=== PATIENT | male | born 1965 | race Caucasian/White ===

== ENCOUNTER 2017-09-05 15:34 | Emergency (ER) | payer MEDICARE, MEDICAID, SELFPAY ==
[2017-09-05 15:35] VITALS: BP 155/108; PULSE 97; RESP 18; RESP 20; TEMP 37.1; O2SAT 96; O2SAT 97; BMI 26.9
--- NOTE | 2017-09-05 15:56 | CT_ITS ---
STUDY: CT ABDOMEN AND PELVIS WITH CONTRAST REASON FOR EXAM: Male, 52 years old. Lump right side of abdomen. History of Crohn's. Right hemicolectomy. Small bowel resection and appendectomy. RADIATION DOSAGE (If Supplied By Facility): CTDIvol = ( 17.46 ) mGy, DLP = ( 1000.39 ) mGycm TECHNIQUE: Transaxial images were obtained from the dome of the diaphragm to the symphysis pubis without oral contrast. 100ML ml of Isovue 300 contrast was administered. Sagittal and coronal images were reconstructed. Individualized dose optimization techniques were used for this CT. COMPARISON: January 31, 2016 FINDINGS: The visualized lung bases are unremarkable. The visualized portions of the heart are within normal limits. Normal liver. The gallbladder is contracted. Normal spleen. Normal pancreas. Normal bilateral adrenal glands. 2 simple right renal cortical cysts are noted measuring up to 3 cm. Normal left kidney. Normal visualized stomach. Normal small intestine. Multiple air-fluid levels are noted throughout the colon. Partial colectomy. There is oral contrast throughout the colon. There is non-visualization of the appendix. Normal abdominal aorta. Normal inferior vena cava. Normal retroperitoneum. Normal urinary bladder. Fat-containing inguinal hernias. Surgical clips are noted along the anterior abdominal wall. Remote healed ostomy right lower quadrant. Normal osseous structures. CT/Abdomen/Pelvis WITH Contrast IMPRESSION: Postoperative changes as above. No acute disease. Electronically Signed: Renan Herr MD at 19:21 EDT , Service support ,
--- NOTE | 2017-09-05 15:58 | ED.VISSUMM ---
- ER Visit Summary Date of Service: 09/05/17 Chief Complaint: [] abd pain history of Crohn's disease History of Present Illness: The patient is a 52 M [] 3 of multiple abdominal surgeries related to Crohn's disease he is currently on immunotherapy every 6 weeks that have control the Crohn's disease he reports for about a week he has had pain over a prior colostomy site that was taken down a few years ago. He did not injure himself anyway he has had no vomiting he has had normal bowel habits consist of diarrheal stool no blood he has been able to eat without difficulty his urinary habits have been normal, he has chronic abdominal pain he is on Percocet but he is out of the Percocet is schedule see his primary care physician tomorrow. He is followed by [facility] surgeons, his last abdominal surgery was a few years ago Physical Examination: []vs signs are within normal range she is in no distress she has a large cruciated type abdominal scar from prior surgeries he complains of pain over the right lower side of the scar over what he describes as the prior colostomy site this area is mildly tender there is no warmth redness fluctuance or fullness, his rest of his exam is unremarkable his lungs are clear heart tones are normal upper lower extremities are normal clinically he looks well he indicates he did not injure himself Test Results: [] Emergency Department Course and Treatment: [] All of the above labs CT pain management IV fluids Patient CBC chemistry labs CT abdomen IV oral contrast are all unremarkable showing nothing acute see those reports he is feeling better I have explained the test results to him at this time he feels comfortable discharge home follow-up with [facility] surgeons tomorrow he will be given 2 Percocet tablets to use as he is out of them as of explained we cannot further manage his pain through the emergency department, I explained to him again that the exact etiology of the pain is having is unclear there is no signs of an obstruction hernia incarceration exacerbation of Crohn's etc. and he understands need to follow-up with his physicians and he will do so and he feels comfortable with outpatient management Treatment Plan: [] Disposition: [] Home stable Impression: [] Acute recurrent abdominal pain history of Crohn's disease This note was generated with [employer] software. It may contain incorrect words, spelling, and punctuation that were not noted in review of the chart prior to signing ED Disposition - Plan for ED Patient: Chief Complaint: Abd Pain Referrals: Becca Le [Primary Care Provider] -
[2017-09-05 16:19] LABS: Bacteria 0 SEEN /hpf (None Seen); Squamous Epithelial Cells - UA 0 SEEN /hpf (0-5)
[2017-09-05 16:36] LABS: Color, Urine Yellow (Yellow); Glucose, Dipstick Normal (Normal); Ketone-Dipstick Negative (Negative); Leukocyte Esterase-Dipstick 25 /ul (Negative); Nitrite-Dipstick Negative (Negative); Occult Blood-Urine Negative /ul (Negative); Protein-Dipstick 15 mg/dl (Negative); Specific Gravity, Urine 1.025 (1.002-1.030); Urine Clarity Sl. Cloudy (Clear); Urine Urobilinogen 1 mg/dl (Normal)
[2017-09-05 16:52] LABS: Urine Bilirubin Dipstick 1 mg/dL (Negative)
[2017-09-05 17:02] LABS: Hyaline Cast 0-5 SEEN /lpf (0-5)
[2017-09-05 17:03] LABS: Mucous, Urine 3+ /hpf (<or=2+)
[2017-09-05 17:04] LABS: Calcium Oxalate Crystals Ur 2+ /hpf (<or=2+); White Blood Cells 0-5 SEEN /hpf (0-5)
[2017-09-05 17:06] LABS: Red Blood Cells-Urine 0-5 SEEN /hpf (0-5)
[2017-09-05] MEDS: HYDROmorphone 1 MG/ML Syringe 0.5 MG IV (17:15)
[2017-09-05] MEDS: Ondansetron 4 MG/2 ML Vial IV (17:15)
[2017-09-05] MEDS: 0.9% Normal Saline 1,000 ML 125 ML IV (17:42)
[2017-09-05 17:53] LABS: AST(SGOT) 18 U/L (15-37); Absolute Lymphocyte Count 1.26 X10^3/ul (0.83-4.51); Absolute Neutrophil Count 5.4 X10^3/uL (2.0-7.7); Alanine Aminotransfer ALT/SGPT 21 U/L (16-61); Alkaline Phosphatase 44 U/L (45-117); Anion Gap 6 (5-15); BUN 19 mg/dL (7-18); Basophil# 0.05 X10^3/uL; Basophil% 0.7 % (0-1); Bilirubin, Direct < 0.05 mg/dL (0.00-0.30); Chloride 108 mmol/L (98-107); Creatinine, Serum 1.27 mg/dL (0.70-1.30); EST Glomerular Filtration Rate 64 mL/min (>60); Eosinophil# 0.28 X10^3/uL; Eosinophils% 3.7 % (0-5); Est Glom Filt Rate - Afr Amer 77 mL/min (>60); Estimated Creatinine Clearance 76.38 ml/min; Globulin 3.1 g/dL (2.2-4.2); Glucose 85 mg/dL (74-106); Hematocrit 35.8 % (40-54); Hemoglobin 11.3 g/dl (13.0-16.5); Lipase 1289 U/L (73-393); Lymphocyte # 1.26 X10^3/ul (4.0); Lymphocyte % 16.8 % (19-41); Mean Corp Hgb Conc 31.6 g/gl (32-36); Mean Corpuscular Hgb 25.7 pg (27.0-32.0); Mean Corpuscular Volume 81.4 fL (80-94); Mean Platelet Vol. 9.1 fl (6.2-12.0); Monocyte% 6.6 % (0-10); Neutrophil # 5.42 X10^3/uL (2.7-7.7); Neutrophil % 72.1 % (47-70); Platelet Count 259 K/mm3 (150-450); Potassium 3.9 mmol/L (3.5-5.1); Protein, Total 6.1 g/dL (6.4-8.2); RBC Distribution Width CV 22.3 % (11.6-14.6); RBC Distribution Width SD 64.6 fl (35.1-43.9); Sodium Level 140 mmol/L (136-145); White Blood Count 7.5 K/mm3 (4.4-11.0)
[2017-09-05 18:06] VITALS: BP 138/94; PULSE 70; RESP 20; O2SAT 97
[2017-09-05 18:12] LABS: Differential Indicated SCAN CRITERIA MET; POSITIVE COUNT NO; POSITIVE DIFFERENTIAL NO; POSITIVE MORPHOLOGY YES
[2017-09-05 18:13] LABS: Anisocytosis 1+
--- NOTE | 2017-09-05 19:50 | ED.DEP ---
ED Disposition - Plan for ED Patient: Chief Complaint: Abd Pain Instructions: ED Abdominal Pain Unkn Cause Prescriptions: Oxycodone HCl/Acetaminophen [Percocet 5/325] 1 tab PO Q6H PRN PRN #2 tab PRN Reason: Pain Referrals: Becca Le [Primary Care Provider] -
== END 2017-09-05 20:07 | disposition home or self-care (01) ==
PROVIDERS: Emergency Provider Emergency Medicine; Family Provider Family Medicine; PCP Family Medicine
DX: R10.9 Unspecified abdominal pain (principal); G89.29 Other chronic pain; K50.90 Crohn's disease, unspecified, without complications; Z79.899 Other long term (current) drug therapy
CPT/HCPCS: 36591; 74177; 80048; 80076; 81001; 83690; 85025; 96361; 96374; 96375; 99282; J7030; J7040; Q9967; A4216; J2405

== ENCOUNTER 2017-09-09 01:09 | Emergency (ER) | payer MEDICARE, MEDICAID, SELFPAY ==
[2017-09-09 01:10] VITALS: BP 134/72; PULSE 94; RESP 18; TEMP 36.6; O2SAT 95; BMI 26.9
--- NOTE | 2017-09-09 01:54 | ED.DCSUM_ITS ---
- ER Visit Summary Date of Service: 09/09/17 Chief Complaint: [] Wound evaluation History of Present Illness: The patient is a 52 M [] patient concern for possible tick bite after being in the [place]. Patient has an area of concern in the left upper chest above his MediPort that is used for his Crohn's treatment. He denies seeing any tick however he has a questionable either ingrown hair versus tick bite and is here for evaluation. Denies any symptoms or rash. No other complaints at this time. Physical Examination: [] Afebrile, vital signs stable. Examination of the left chest wall reveals a Mediport with a small half centimeter area of open skin consistent with a resolved ingrown hair. No signs of tick or tick body parts. No signs of erythema consistent with Lyme disease. Skin is not warm to touch. Very benign examination. Test Results: [] None. Emergency Department Course and Treatment: [] Patient evaluated for condition not found. This does not appear to be a tick bite. Patient was encouraged to keep an eye on the area and follow-up with his primary care physician. The area in question did not require incision and drainage. Treatment Plan: [] Follow-up with PCP. Disposition: [] Discharge, stable. Impression: [] Ingrown hair on the chest wall, resolved This note was generated with [employer] dictation software. It may contain incorrect words, spelling, and punctuation that were not noted in review of the chart prior to signing ED Disposition - Plan for ED Patient: Chief Complaint: Bite Referrals: Becca Le [Primary Care Provider] -
--- NOTE | 2017-09-09 01:54 | ED.DEP ---
ED Disposition - Plan for ED Patient: Disposition: Home or Assisted Living Chief Complaint: Bite Instructions: Wound Care Referrals: Becca Le [Primary Care Provider] -
[2017-09-09 02:32] VITALS: RESP 18
== END 2017-09-09 02:32 | disposition home or self-care (01) ==
PROVIDERS: Emergency Provider Emergency Medicine; Family Provider Family Medicine; PCP Family Medicine
DX: L73.1 Pseudofolliculitis barbae (principal); K50.90 Crohn's disease, unspecified, without complications; Z95.828 Presence of other vascular implants and grafts; Z79.899 Other long term (current) drug therapy
CPT/HCPCS: 99282

== ENCOUNTER 2017-12-03 13:38 | Inpatient (IN) | payer MEDICARE, MEDICAID, SELFPAY ==
[2017-12-03 13:39] VITALS: BP 141/88; PULSE 92; RESP 16; TEMP 37.1; O2SAT 98; BMI 26.7
[2017-12-03 14:53] LABS: Absolute Lymphocyte Count 1.04 X10^3/ul (0.83-4.51); Absolute Neutrophil Count 5.2 X10^3/uL (2.0-7.7); Basophil# 0.07 X10^3/uL; Eosinophils% 2.8 % (0-5); Hematocrit 26.3 % (40-54); Hemoglobin 7.8 g/dl (13.0-16.5); Lymphocyte # 1.04 X10^3/ul (4.0); Lymphocyte % 14.7 % (19-41); Mean Corp Hgb Conc 29.7 g/gl (32-36); Mean Corpuscular Hgb 22.5 pg (27.0-32.0); Mean Corpuscular Volume 75.8 fL (80-94); Mean Platelet Vol. 8.3 fl (6.2-12.0); Monocyte# 0.54 X10^3/uL; Monocyte% 7.6 % (0-10); Neutrophil # 5.21 X10^3/uL (2.7-7.7); Neutrophil % 73.8 % (47-70); POSITIVE COUNT NO; POSITIVE DIFFERENTIAL NO; POSITIVE MORPHOLOGY NO; Platelet Count 272 K/mm3 (150-450); RBC Distribution Width CV 15.4 % (11.6-14.6); RBC Distribution Width SD 42.6 fl (35.1-43.9); Red Blood Count 3.47 M/mm3 (4.6-6.2); White Blood Count 7.1 K/mm3 (4.4-11.0)
[2017-12-03] MEDS: 0.9% Normal Saline 1,000 ML 1000 ML IV (14:56)
[2017-12-03 15:07] LABS: Anion Gap 7 (5-15); BUN 15 mg/dL (7-18); BUN/Creat Ratio 12.5 RATIO (10-20); Calcium,Total 8.3 mg/dL (8.5-10.1); Chloride 113 mmol/L (98-107); EST Glomerular Filtration Rate 68 mL/min (>60); Est Glom Filt Rate - Afr Amer 82 mL/min (>60); Estimated Creatinine Clearance 80.83 ml/min; Glucose 79 mg/dL (74-106); Lipase 118 U/L (73-393); Potassium 4.4 mmol/L (3.5-5.1); Sodium Level 145 mmol/L (136-145)
--- NOTE | 2017-12-03 15:17 | RAD_ITS ---
STUDY: X-RAY - ACUTE ABDOMINAL SERIES REASON FOR EXAM: Male, 52 years old. Abdominal pain with nausea and vomiting. Patient has a history of Crohn's disease. TECHNIQUE: Single view of the chest. Supine, and erect view(s) of the abdomen were obtained. COMPARISON: None. FINDINGS: A left-sided leigh catheter is seen with the tip in the proximal portion of the superior vena cava. The lungs are clear and expanded. Normal size heart. Normal mediastinum and paolo. Normal visualized pulmonary arteries. Normal visualized aortic arch and descending thoracic aorta. There is a non-specific bowel gas pattern. There are multiple calcified phleboliths. Surgical sutures are seen in the right hemipelvis and right midabdomen. There are degenerative changes of the visualized lumbar spine. Mild dextroscoliosis. RAD/Acute Abdomen Inc Chest IMPRESSION: Nonspecific bowel gas pattern. Electronically Signed: Gordo Smith MD at 15:33 EDT Tel [phone], Service support ,
[2017-12-03] MEDS: HYDROmorphone 0.5 MG/0.5 ML SYRINGE IV ×2 (15:31→18:27)
[2017-12-03 15:34] LABS: Bacteria 0 SEEN /hpf (None Seen); Red Blood Cells-Urine 0 SEEN /hpf (0-5); Squamous Epithelial Cells - UA 0 SEEN /hpf (0-5)
[2017-12-03 16:02] LABS: Color, Urine Yellow (Yellow); Glucose, Dipstick Normal (Normal); Ketone-Dipstick Negative (Negative); Leukocyte Esterase-Dipstick Negative /ul (Negative); Nitrite-Dipstick Negative (Negative); Occult Blood-Urine Negative /ul (Negative); Protein-Dipstick 15 mg/dl (Negative); Urine Bilirubin Dipstick Negative (Negative); Urine Clarity Clear (Clear); Urine Urobilinogen Normal (Normal)
--- NOTE | 2017-12-03 16:16 | ED.VISSUMM ---
- ER Visit Summary Date of Service: 12/03/17 Chief Complaint: Abdominal pain History of Present Illness: The patient is a 52 M with a history of Crohn's disease who presents with abdominal pain that has been gradually getting worse over the past week. Patient states the pain is over the left upper quadrant and left lower quadrants. Patient states the pain is worse with certain movements. Patient describes his pain as aching. Patient admits to some nausea but denies any vomiting. Patient states he has a history of diarrhea and has been having frequent watery and loose diarrhea. Patient states he did noted some black stools yesterday but denies any melena today. Physical Examination: Vital signs are stable. Patient is afebrile. Patient is in no acute distress. Oral mucosa is pink and moist. Pupils are equal, round, and reactive to light bilateral. Extraocular muscles are intact. Conjunctiva is clear. Neck is supple. There is no JVD noted. Heart was regular rate and rhythm. Lungs are clear and equal bilaterally. Abdomen is soft. Bowel sounds are normal. There is some mild left upper quadrant and left lower quadrant tenderness. There is no rebound or guarding noted. There is no left CVA tenderness noted. Rectal exam showed good sphincter tone. There is brown stool. There were no masses. Prostate is not enlarged. Test Results: CBC showed anemia with a hemoglobin of 7.8. Patient metabolic profile was within normal limits. Acute abdominal x-rays were obtained. There is nonspecific bowel gas pattern. This was interpreted by the radiologist and reviewed by me. Emergency Department Course and Treatment: Patient was given a dose of Dilaudid here. Patient felt better on reevaluation. Case was discussed with Dr. Jackson. He wanted me to discuss the case with surgery. Patient had multiple surgeries at the [facility]. Case was discussed with Dr. Cruz, general surgeon for [facility] here in [place]. She will be happy to see the patient in consultation. Patient will be admitted to the service of Dr. Jackson. Disposition: Admit to hospital Impression: Anemia, gastrointestinal bleeding This note was generated with [employer] dictation software. It may contain incorrect words, spelling, and punctuation that were not noted in review of the chart prior to signing ED Disposition - Plan for ED Patient: Disposition: Acute Care Hospital [facility] Chief Complaint: Abd Pain Diagnosis: Gastrointestinal bleeding, Anemia Referrals: Becca Le DO [Primary Care Provider] -
--- NOTE | 2017-12-03 16:19 | ED.DCSUM_ITS ---
- ER Visit Summary Date of Service: 12/03/17 Chief Complaint: Abdominal pain History of Present Illness: The patient is a 52 M with a history of Crohn's disease who presents with abdominal pain that has been gradually getting worse over the past week. Patient states the pain is over the left upper quadrant and left lower quadrants. Patient states the pain is worse with certain movements. Patient describes his pain as aching. Patient admits to some nausea but denies any vomiting. Patient states he has a history of diarrhea and has been having frequent watery and loose diarrhea. Patient states he did noted some black stools yesterday but denies any melena today. Physical Examination: Vital signs are stable. Patient is afebrile. Patient is in no acute distress. Oral mucosa is pink and moist. Pupils are equal, round, and reactive to light bilateral. Extraocular muscles are intact. Conjunctiva is clear. Neck is supple. There is no JVD noted. Heart was regular rate and rhythm. Lungs are clear and equal bilaterally. Abdomen is soft. Bowel sounds are normal. There is some mild left upper quadrant and left lower quadrant tenderness. There is no rebound or guarding noted. There is no left CVA tenderness noted. Rectal exam showed good sphincter tone. There is brown stool. There were no masses. Prostate is not enlarged. Test Results: CBC showed anemia with a hemoglobin of 7.8. Patient metabolic profile was within normal limits. Acute abdominal x-rays were obtained. There is nonspecific bowel gas pattern. This was interpreted by the radiologist and reviewed by me. Emergency Department Course and Treatment: Patient was given a dose of Dilaudid here. Patient felt better on reevaluation. Case was discussed with Dr. Jackson. He wanted me to discuss the case with surgery. Patient had multiple surgeries at the [facility]. Case was discussed with Dr. Cruz , general surgeon for [facility] here in [place]. She will be happy to see the patient in consultation. Patient will be admitted to the service of Dr. Jackson. Disposition: Admit to hospital Impression: Anemia, gastrointestinal bleeding This note was generated with [employer] dictation software. It may contain incorrect words, spelling, and punctuation that were not noted in review of the chart prior to signing ED Disposition - Plan for ED Patient: Disposition: Acute Care Hospital [facility] Chief Complaint: Abd Pain Diagnosis: Gastrointestinal bleeding, Anemia Referrals: Becca Le DO [Primary Care Provider] -
[2017-12-03 16:37] LABS: Hyaline Cast 0-5 SEEN /lpf (0-5); Mucous, Urine RARE /hpf (<or=2+); White Blood Cells 0-5 SEEN /hpf (0-5)
[2017-12-03 17:09] VITALS: BP 134/94; PULSE 67; PULSE 69; RESP 16; O2SAT 98; O2SAT 99
--- NOTE | 2017-12-03 17:29 | NURSING ---
CALLING [facility] MAIN FOR TRANSFER.
--- NOTE | 2017-12-03 17:44 | PCM.HP.STD ---
Problem List (1) Acute blood loss anemia Status: Acute (2) Exacerbation of Crohn's disease Status: Acute (3) Gastrointestinal bleeding Status: Acute History of Present Illness Date of Admission: 12/03/17 Chief Complaint: LLQ abdominal pain and melena The patient is a 52 year old M history of Crohn's disease presents with a three-week history of left lower quadrant abdominal pain and melena. Patient has had numerous surgeries is approximately 300 cm left of GI tract. Patient states that when he gets these episodes that he is generally sent to [facility]. I was asked to see patient knew that for GI bleed. Patient has been having melena but none today but just states that his stool is watery. Has left lower quadrant pain that is steadily gotten worse. This is all consistent with his history of Crohn's exacerbation though his anemia is lower than it has been in the past. Patient was anticipating being admitted given his history and did bring supplies to occupy his time while he is in the hospital. Dr. salcedo, of general surgery was consulted. I did discuss with her and said that she would be happy to see him but if patient did require procedures and he would be best suited going to the [facility]. Did discuss with emergency room doctor who will be attempting to facilitate an accepting physician at [facility]. Though it is expected that they will not have any beds available today so patient will be admitted so until he can have a bed that is available. [] Past Medical History Past Medical History (Chronic Problems): Chronic Problems History of multiple sclerosis (Chronic) ZORAIDA Virus positive (Chronic) History of gastroesophageal reflux (GERD) (Chronic) History of Crohn's disease (Chronic) JAYE on CPAP (Chronic) Gall bladder disease (Chronic) Overweight (BMI 25.0-29.9) (Chronic) History of depression (Chronic) Medical History: Medical History (Last Updated 12/03/17 @ 17:48 by Terence Jackson DO) Anemia D64.9 Crohns disease K50.90 Depression F32.9 GERD (gastroesophageal reflux disease) K21.9 Multiple sclerosis G35 JAYE (obstructive sleep apnea) G47.33 Allergies morphine Allergy (Verified 12/03/17 13:41) Itching Home Medications: Ambulatory Orders Medication Instructions Recorded Pantoprazole Sodium [Protonix] 20 mg PO DAILY 01/31/16 Cyanocobalamin (Vitamin B-12) 1,000 mcg IJ QWEEK 09/05/17 [B-12 Compliance] Dextroamphetamine/Amphetamine 10 mg PO BID 09/05/17 [Adderall 10 mg Tablet] Ergocalciferol [Vitamin D] 50,000 unit PO Q7D 09/05/17 Ondansetron [Zofran Odt] 4 mg PO PRN PRN 09/05/17 Pregabalin [Lyrica] 150 mg PO BID 09/05/17 Vedolizumab [Entyvio] 300 mg IV X1 09/05/17 Multivitamin [Daily Multiple 1 each PO DAILY 12/03/17 Vitamin] Surgical History: - - 2 hernia surgery, appendicectomy, four bowel surgeries, right knee surgery, Humira injection site surgery. Psychiatric History: Depression Lives: Spouse/ Significant Other Smoking Status: Former smoker Tobacco Use: Non-smoker Alcohol: Rare Drugs: Marijuana - *Family History Maternal History Items: - - Crohn's disease Paternal History Items: Heart Disease, - - Colon cancer Sibling History Items: - - Crohn's disease Review of Systems Constitutional: Denies: Anorexia, Chills, Fever Eyes: Denies: Blurred vision, Double vision HEENT: Denies: Head Aches, Sinus Congestion, Sinus Drainage Cardiovascular: Denies: Chest Pain, Palpitations Respiratory: Denies: Cough, Shortness of breath at rest, Sputum production Gastrointestinal: Reports: Abdominal Pain - LLQ, Diarrhea, Melena Genitourinary: Denies: Dysuria Musculoskeletal: Denies: Joint Pain, Joint Tenderness Skin: Denies: Rash, Wounds Neurological: Denies: Numbness, Tingling, Focal weakness Psychiatric: Reports: Depression. Denies: Anxiety Hematologic/ Lymphatic: Reports: Easy Bleeding. Denies: Hx of blood clot Comment: All review of systems are negative except as mentioned in the history of present illness and the other review of systems. VTE Information - Inpt Only VTE Present on Admission: No VTE Mechan Device Prophylaxis: SCD's Reason prophylaxis not ordered:: Medical Contraindication Patient Problems: Active and Suspected Problems Gastrointestinal bleeding (Acute) Anemia (Acute) Acute blood loss anemia (Acute) Exacerbation of Crohn's disease (Acute) - Physical Exam General: Alert, Cooperative, No apparent distress HEENT: Atraumatic, Normocephalic Oral: Moist Mucosa, No Gingival or Mucosal Lesions/ Ulcerations Neck: No Nodes, Thyroid Normal Size and Texture Lungs: Clear to auscultation, Normal air movement, No rhonchi, No wheeze Cardiovascular: Regular rate, Regular Rhythm, Normal S1, Normal S2, No murmurs Abdomen: Bowel Sounds Present, Soft, Non-Distended, Rebound Tenderness, Tender - Left lower quadrant Extremities: No edema, No Calf Tenderness Skin: No rashes, No breakdown Musculoskeletal: No Tenderness to Palpation of Joints or Extremities, No Muscle Wasting Neurological: Sensory exam intact to light touch and pain, Coordination normal Psych/Mental Status: Normal Affect, Appropriate Vital Signs Temp Pulse Resp BP Pulse Ox 37.1 C 67 16 134/94 H 98 12/03/17 13:39 12/03/17 17:09 12/03/17 17:09 12/03/17 17:09 12/03/17 17:09 Oxygen Delivery Method Room Air Weight: 89.5 kg Body Mass Index (BMI) 26.7 Laboratory Tests Past 24 Hrs 12/03/17 12/03/17 12/03/17 14:44 14:44 15:30 WBC 7.1 RBC 3.47 L Hgb 7.8 L Hct 26.3 L MCV 75.8 L MCH 22.5 L MCHC 29.7 L RDW 15.4 H RDW Differential 42.6 Plt Count 272 MPV 8.3 Immature Gran % (Auto) 0.100 Neut % (Auto) 73.8 H Lymph % (Auto) 14.7 L Waldo % (Auto) 7.6 Eos % (Auto) 2.8 Baso % (Auto) 1.0 Absolute Neuts (auto) 5.2 Absolute Lymphs (auto) 1.04 Total Counted Not Reportable Sodium 145 Potassium 4.4 Chloride 113 H Carbon Dioxide 25.0 Anion Gap 7 BUN 15 Creatinine 1.20 Estim Creat Clear Calc 80.83 Est GFR (MDRD) Af Amer 82 Est GFR (MDRD) Non-Af 68 BUN/Creatinine Ratio 12.5 Glucose 79 Calcium 8.3 L Lipase 118 Urine Color Yellow Urine Clarity Clear Urine pH 5.0 Ur Specific [place] 1.030 Urine Protein 15 H Urine Glucose (UA) Normal Urine Ketones Negative Urine Occult Blood Negative Urine Nitrite Negative Urine Bilirubin Negative Urine Urobilinogen Normal Ur Leukocyte Esterase Negative Urine RBC 0 SEEN Urine WBC 0-5 SEEN Ur Squamous Epith Cells 0 SEEN Urine Bacteria 0 SEEN Hyaline Casts 0-5 SEEN Urine Mucus RARE Clinical Impression(s) from Imaging Studies Acute Abdomen Series 12/03/17 15:17 IMPRESSION: Nonspecific bowel gas pattern. Electronically Signed: Gordo Smith MD at 15:33 EDT Tel [phone], Service support , Assessment/Plan All Active Problems Gastrointestinal bleeding (Acute) Anemia (Acute) Acute blood loss anemia (Acute) Exacerbation of Crohn's disease (Acute) Hypomagnesemia (Acute) Dehydration (Acute) Exacerbation of Crohn's disease (Ruled-out) 1. Acute blood loss anemia Due to GI bleed Will type and cross patient for 1 unit but hold for now Follow-up hemoglobin in the morning 2. GI bleed I suspect due to a Crohn's exacerbation though I cannot confirm that just yet Will put the patient on IV PPI empirically Given the patient's altered anatomy due to his multiple surgeries will require further potential procedures at the main campus of [facility] General surgery be on consult here though did mention no imminent procedures will be performed here. 3. Suspected Crohn's exacerbation Ordered a CAT scan of his abdomen and pelvis to get better identification was going on his left lower quadrant. Presumably this is due to his Crohn's but cannot rule out any other acute process at this time. If no clear evidence of any abscess in patient on high-dose steroids Until we get the results of the CAT scan, I am going to hold off on his Entyvio 4. DVT prophylaxis with SCDs. Chemical prophylaxis contraindicated in light of the acute blood loss anemia and hemorrhage. Code Visit Inpatient E&M: 32767 Init Hosp L3
--- NOTE | 2017-12-03 17:46 | NURSING ---
[id number] FAXED FACESHEET TO [facility]
--- NOTE | 2017-12-03 17:46 | NURSING ---
DR PERRY FOR DR REY
--- NOTE | 2017-12-03 17:54 | HP.PCM_ITS ---
Problem List (1) Acute blood loss anemia Status: Acute (2) Exacerbation of Crohn's disease Status: Acute (3) Gastrointestinal bleeding Status: Acute History of Present Illness Date of Admission: 12/03/17 Chief Complaint: LLQ abdominal pain and melena The patient is a 52 year old M history of Crohn's disease presents with a three- week history of left lower quadrant abdominal pain and melena. Patient has had numerous surgeries is approximately 300 cm left of GI tract. Patient states that when he gets these episodes that he is generally sent to [facility]. I was asked to see patient knew that for GI bleed. Patient has been having melena but none today but just states that his stool is watery. Has left lower quadrant pain that is steadily gotten worse. This is all consistent with his history of Crohn's exacerbation though his anemia is lower than it has been in the past. Patient was anticipating being admitted given his history and did bring supplies to occupy his time while he is in the hospital. Dr. salcedo, of general surgery was consulted. I did discuss with her and said that she would be happy to see him but if patient did require procedures and he would be best suited going to the [facility]. Did discuss with emergency room doctor who will be attempting to facilitate an accepting physician at [facility]. Though it is expected that they will not have any beds available today so patient will be admitted so until he can have a bed that is available. [] Past Medical History Past Medical History (Chronic Problems): Chronic Problems History of multiple sclerosis (Chronic) ZORAIDA Virus positive (Chronic) History of gastroesophageal reflux (GERD) (Chronic) History of Crohn's disease (Chronic) JAYE on CPAP (Chronic) Gall bladder disease (Chronic) Overweight (BMI 25.0-29.9) (Chronic) History of depression (Chronic) Medical History: Medical History (Last Updated 12/03/17 @ 17:48 by Terence Jackson DO) Anemia D64.9 Crohns disease K50.90 Depression F32.9 GERD (gastroesophageal reflux disease) K21.9 Multiple sclerosis G35 JAYE (obstructive sleep apnea) G47.33 Allergies morphine Allergy (Verified 12/03/17 13:41) Itching Home Medications: Ambulatory Orders Medication Instructions Recorded Pantoprazole Sodium [Protonix] 20 mg PO DAILY 01/31/16 Cyanocobalamin (Vitamin B-12) 1,000 mcg IJ QWEEK 09/05/17 [B-12 Compliance] Dextroamphetamine/Amphetamine 10 mg PO BID 09/05/17 [Adderall 10 mg Tablet] Ergocalciferol [Vitamin D] 50,000 unit PO Q7D 09/05/17 Ondansetron [Zofran Odt] 4 mg PO PRN PRN 09/05/17 Pregabalin [Lyrica] 150 mg PO BID 09/05/17 Vedolizumab [Entyvio] 300 mg IV X1 09/05/17 Multivitamin [Daily Multiple 1 each PO DAILY 12/03/17 Vitamin] Surgical History: - - 2 hernia surgery, appendicectomy, four bowel surgeries, right knee surgery, Humira injection site surgery. Psychiatric History: Depression Lives: Spouse/ Significant Other Smoking Status: Former smoker Tobacco Use: Non-smoker Alcohol: Rare Drugs: Marijuana - *Family History Maternal History Items: - - Crohn's disease Paternal History Items: Heart Disease, - - Colon cancer Sibling History Items: - - Crohn's disease Review of Systems Constitutional: Denies: Anorexia, Chills, Fever Eyes: Denies: Blurred vision, Double vision HEENT: Denies: Head Aches, Sinus Congestion, Sinus Drainage Cardiovascular: Denies: Chest Pain, Palpitations Respiratory: Denies: Cough, Shortness of breath at rest, Sputum production Gastrointestinal: Reports: Abdominal Pain - LLQ, Diarrhea, Melena Genitourinary: Denies: Dysuria Musculoskeletal: Denies: Joint Pain, Joint Tenderness Skin: Denies: Rash, Wounds Neurological: Denies: Numbness, Tingling, Focal weakness Psychiatric: Reports: Depression. Denies: Anxiety Hematologic/ Lymphatic: Reports: Easy Bleeding. Denies: Hx of blood clot Comment: All review of systems are negative except as mentioned in the history of present illness and the other review of systems. VTE Information - Inpt Only VTE Present on Admission: No VTE Mechan Device Prophylaxis: SCD's Reason prophylaxis not ordered:: Medical Contraindication Patient Problems: Active and Suspected Problems Gastrointestinal bleeding (Acute) Anemia (Acute) Acute blood loss anemia (Acute) Exacerbation of Crohn's disease (Acute) - Physical Exam General: Alert, Cooperative, No apparent distress HEENT: Atraumatic, Normocephalic Oral: Moist Mucosa, No Gingival or Mucosal Lesions/ Ulcerations Neck: No Nodes, Thyroid Normal Size and Texture Lungs: Clear to auscultation, Normal air movement, No rhonchi, No wheeze Cardiovascular: Regular rate, Regular Rhythm, Normal S1, Normal S2, No murmurs Abdomen: Bowel Sounds Present, Soft, Non-Distended, Rebound Tenderness, Tender - Left lower quadrant Extremities: No edema, No Calf Tenderness Skin: No rashes, No breakdown Musculoskeletal: No Tenderness to Palpation of Joints or Extremities, No Muscle Wasting Neurological: Sensory exam intact to light touch and pain, Coordination normal Psych/Mental Status: Normal Affect, Appropriate Vital Signs Temp Pulse Resp BP Pulse Ox 37.1 C 67 16 134/94 H 98 12/03/17 13:39 12/03/17 17:09 12/03/17 17:09 12/03/17 17:09 12/03/17 17:09 Oxygen Delivery Method Room Air Weight: 89.5 kg Body Mass Index (BMI) 26.7 Laboratory Tests Past 24 Hrs 12/03/17 12/03/17 12/03/17 14:44 14:44 15:30 WBC 7.1 RBC 3.47 L Hgb 7.8 L Hct 26.3 L MCV 75.8 L MCH 22.5 L MCHC 29.7 L RDW 15.4 H RDW Differential 42.6 Plt Count 272 MPV 8.3 Immature Gran % (Auto) 0.100 Neut % (Auto) 73.8 H Lymph % (Auto) 14.7 L [place] % (Auto) 7.6 Eos % (Auto) 2.8 Baso % (Auto) 1.0 Absolute Neuts (auto) 5.2 Absolute Lymphs (auto) 1.04 Total Counted Not Reportable Sodium 145 Potassium 4.4 Chloride 113 H Carbon Dioxide 25.0 Anion Gap 7 BUN 15 Creatinine 1.20 Estim Creat Clear Calc 80.83 Est GFR (MDRD) Af Amer 82 Est GFR (MDRD) Non-Af 68 BUN/Creatinine Ratio 12.5 Glucose 79 Calcium 8.3 L Lipase 118 Urine Color Yellow Urine Clarity Clear Urine pH 5.0 Ur Specific [place] 1.030 Urine Protein 15 H Urine Glucose (UA) Normal Urine Ketones Negative Urine Occult Blood Negative Urine Nitrite Negative Urine Bilirubin Negative Urine Urobilinogen Normal Ur Leukocyte Esterase Negative Urine RBC 0 SEEN Urine WBC 0-5 SEEN Ur Squamous Epith Cells 0 SEEN Urine Bacteria 0 SEEN Hyaline Casts 0-5 SEEN Urine Mucus RARE Clinical Impression(s) from Imaging Studies Acute Abdomen Series 12/03/17 15:17 IMPRESSION: Nonspecific bowel gas pattern. Electronically Signed: Gordo Smith MD at 15:33 EDT Tel [phone], Service support , Assessment/Plan All Active Problems Gastrointestinal bleeding (Acute) Anemia (Acute) Acute blood loss anemia (Acute) Exacerbation of Crohn's disease (Acute) Hypomagnesemia (Acute) Dehydration (Acute) Exacerbation of Crohn's disease (Ruled-out) 1. Acute blood loss anemia * Due to GI bleed * Will type and cross patient for 1 unit but hold for now * Follow-up hemoglobin in the morning 2. GI bleed * I suspect due to a Crohn's exacerbation though I cannot confirm that just yet * Will put the patient on IV PPI empirically * Given the patient's altered anatomy due to his multiple surgeries will require further potential procedures at the main campus of [facility] * General surgery be on consult here though did mention no imminent procedures will be performed here. 3. Suspected Crohn's exacerbation * Ordered a CAT scan of his abdomen and pelvis to get better identification was going on his left lower quadrant. Presumably this is due to his Crohn's but cannot rule out any other acute process at this time. * If no clear evidence of any abscess in patient on high-dose steroids * Until we get the results of the CAT scan, I am going to hold off on his Entyvio 4. DVT prophylaxis with SCDs. Chemical prophylaxis contraindicated in light of the acute blood loss anemia and hemorrhage. Code Visit Inpatient E&M: 16260 Init Hosp L3
--- NOTE | 2017-12-03 17:58 | NURSING ---
IF PATIENT CAN'T GET ADMITTED IN A TIMELY FASHION TO [facility], WE WILL ADMIT HIM.
--- NOTE | 2017-12-03 17:59 | NURSING ---
PCU GI BLEED AYDIN
--- NOTE | 2017-12-03 18:20 | NURSING ---
CALLED [facility] TRANSFER LINE FOR DR REY
--- NOTE | 2017-12-03 18:25 | NURSING ---
[facility] DR FOR DR VILLASENOR
--- NOTE | 2017-12-03 18:33 | ED.RN ---
DR VILLASENOR SPOKE TO DR YBARRA FROM [facility], STILL WORKING ON TRANSFER
[2017-12-03 19:38] VITALS: BP 141/74; PULSE 71; RESP 16; O2SAT 97
--- NOTE | 2017-12-03 20:42 | ED.RN ---
PER STEVE AT [facility], WAIT TIMES ARE PROJECTED TO BE LONGER THAN EIGHT HOURS FOR A ROOM ASSIGNMENT. PER DR VILLASENOR WE SHOULD ADMIT TO THE FLOOR DURING THIS TIME. HOSPITALIST WAS PAGED
--- NOTE | 2017-12-03 21:23 | CT_ITS ---
STUDY: CT ABDOMEN AND PELVIS WITHOUT CONTRAST REASON FOR EXAM: Male, 52 years old. Left lower quadrant abdominal pain RADIATION DOSAGE (If Supplied By Facility): CTDIvol = ( 18.88 ) mGy, DLP = ( 1218.21 ) mGycm TECHNIQUE: Transaxial images were obtained from the dome of the diaphragm to the symphysis pubis without oral contrast, and without intravenous contrast. Sagittal and coronal images were reconstructed. Individualized dose optimization techniques were used for this CT. COMPARISON: CT scan abdomen and pelvis September 05, 2017, abdominal series December 03, 2017. FINDINGS: The visualized lung bases are unremarkable. The visualized portions of the heart are within normal limits. Normal liver. There is a thick-walled appearance of the gallbladder image #39 where it may measure up to 4.4 mm. Is borderline splenomegaly similar to the prior study. Normal pancreas. Normal bilateral adrenal glands. Multiple right-sided renal cysts. There is one measuring 2.5 x 2.3 cm. There is one measuring 1.6 x 1.6 cm. Normal left kidney. Normal visualized stomach. Normal small intestine. There are air-fluid levels within the visualized colon with fecal fluid material. This is similar to the prior study perhaps with lesser distention. There is postoperative change in the right side of the abdomen. Most of the fluid filled bowel are seen on the left side of the abdomen. There is non-visualization of the appendix. Normal abdominal aorta. Normal inferior vena cava. Normal retroperitoneum. Bladder is partially decompressed the wall is thickened. There are calcifications in the prostate. The prostate is of normal size for There is postoperative change in the mid abdominal wall. There is postoperative change in the right anterior side intraperitoneal fat in the right upper quadrant. There are bilateral fatty inguinal hernias. There is degenerative change in the thoracolumbar spine with significant at the level of L5-S1 there is a broad disc bulge and moderate neural foramina narrowing facet arthropathy. There is a diastases of the right to midline abdominal wall which may represent a prior surgical tract or colostomy tract measuring 1.[address]/Abdomen/Pelvis W IV Cont ONLY IMPRESSION: There is a persistent fluid distended appearance of the colon is suggestive of a gastroenteritis type pattern with fluid-filled distended loops of large greater than small bowel. There is postoperative change in the right upper quadrant. Could consider ileus. Postoperative change mid abdomen. Stable bilateral renal cysts. Electronically Signed: Alejandra Srinivasan MD at 22:36 EDT Tel , Service support ,
[2017-12-03 21:25] VITALS: BP 134/94; BP 152/95; PULSE 70; RESP 18; TEMP 36.5; O2SAT 96; BMI 26.3
[2017-12-03 21:28] VITALS: PULSE 76
[2017-12-03] MEDS: 0.9% Normal Saline 1,000 ML 100 ML IV (22:49)
[2017-12-03] MEDS: oxyCODONE 5 MG Tablet PO (22:49)
[2017-12-03] MEDS: 0.9% NaCl VAD Flush 10 ML IV (22:52)
[2017-12-03] MEDS: Pregabalin 75 MG Capsule 150 MG PO (22:52)
[2017-12-03 23:00] VITALS: PULSE 76
[2017-12-04] VITALS (14 sets, daily range): BP systolic 110–136; BP diastolic 60–83; PULSE 58–94; RESP 15–18; TEMP 36.3–36.9; O2SAT 94–99
[2017-12-04] MEDS: oxyCODONE 5 MG Tablet PO ×3 (02:45→12:38)
[2017-12-04] MEDS: 0.9% Normal Saline 1,000 ML 100 ML IV (05:14)
[2017-12-04 05:44] LABS: Anion Gap 7 (5-15); BUN 13 mg/dL (7-18); BUN/Creat Ratio 11.1 RATIO (10-20); Calcium,Total 8.1 mg/dL (8.5-10.1); Chloride 112 mmol/L (98-107); Creatinine, Serum 1.17 mg/dL (0.70-1.30); EST Glomerular Filtration Rate 70 mL/min (>60); Est Glom Filt Rate - Afr Amer 85 mL/min (>60); Estimated Creatinine Clearance 82.91 ml/min; Glucose 82 mg/dL (74-106); Potassium 4.3 mmol/L (3.5-5.1); Sodium Level 143 mmol/L (136-145)
[2017-12-04 05:58] LABS: International Normalized Ratio 1.1; Prothrombin Time (Protime)PT. 14.2 SECONDS (11.7-14.9)
[2017-12-04] MEDS: 0.9% NaCl VAD Flush 10 ML IV ×5 (07:22→21:22)
[2017-12-04 07:38] LABS: Absolute Lymphocyte Count 1.45 X10^3/ul (0.83-4.51); Absolute Neutrophil Count 5.8 X10^3/uL (2.0-7.7); Basophil# 0.06 X10^3/uL; Basophil% 0.7 % (0-1); Eosinophil# 0.27 X10^3/uL; Eosinophils% 3.2 % (0-5); Hematocrit 25.5 % (40-54); Hemoglobin 7.4 g/dl (13.0-16.5); Lymphocyte # 1.45 X10^3/ul (4.0); Lymphocyte % 17.4 % (19-41); Mean Corpuscular Hgb 22.3 pg (27.0-32.0); Mean Corpuscular Volume 76.8 fL (80-94); Mean Platelet Vol. 9.2 fl (6.2-12.0); Monocyte# 0.69 X10^3/uL; Monocyte% 8.3 % (0-10); Neutrophil # 5.82 X10^3/uL (2.7-7.7); Neutrophil % 70.2 % (47-70); Platelet Count 323 K/mm3 (150-450); RBC Distribution Width CV 15.6 % (11.6-14.6); RBC Distribution Width SD 43.8 fl (35.1-43.9); Red Blood Count 3.32 M/mm3 (4.6-6.2); White Blood Count 8.3 K/mm3 (4.4-11.0)
[2017-12-04 07:43] LABS: POSITIVE COUNT NO; POSITIVE DIFFERENTIAL NO; POSITIVE MORPHOLOGY NO
[2017-12-04] MEDS: Pregabalin 75 MG Capsule 150 MG PO ×2 (08:29→21:11)
[2017-12-04] MEDS: Multivitamins,Therapeutic Tablet 1 TABLET PO (08:29)
[2017-12-04 09:18] LABS: Iron 10 ug/dL (65-175); Iron Binding Capacity,Total 399 ug/dL (250-450); PERCENT IRON SATURATION 2.5 % (15.0-55.0)
[2017-12-04] MEDS: Ciprofloxacin 400 MG/200 ML BAG 200 MG IV ×2 (09:34→21:06)
[2017-12-04 10:10] LABS: Bedside Glucose 80 mg/dL (70-110)
[2017-12-04] MEDS: 0.9% Normal Saline 1,000 ML 999 ML IV (10:22)
--- NOTE | 2017-12-04 10:28 | NURSING ---
PT working with pt, p tbecame dizzy, pale, and diaphoretic and numbness. staff assist called, vs taken at 1005 bp 139/82 HR 69 95% RA afebrile, BS 80 cool cloth given for pt, 1L bolus given, nursing teacher sent to retrieve blood products.
--- NOTE | 2017-12-04 11:11 | PCM.PROGNOTE ---
<Bautista Celeste - Last Filed: 12/04/17 11:11> Patient Problems: Active and Suspected Problems (Last Updated 12/03/17 @ 17:48 by Terence Jackson DO) Gastrointestinal bleeding (Acute) Anemia (Acute) Acute blood loss anemia (Acute) Exacerbation of Crohn's disease (Acute) Subjective: Patient very dizzy/lh with activity. continues to have LLQ abdominal pain but it is controlled by current pain regimen well. No further reported blood. No nausea vomiting. Pt complaining of hunger. No fever / chills. - Physical Exam General: Alert, Oriented x3, Cooperative HEENT: Atraumatic, PERRLA, EOMI, Normocephalic Neck: Supple, No JVD, Negative Carotid Bruits Lungs: Clear to auscultation, Normal air movement Cardiovascular: Regular rate, No murmurs Abdomen: Bowel Sounds Present, Soft, Non Tender, Tender - llq, - - multiple old surgical scars. Extremities: No edema, Capillary Refill Less than 3 Seconds Skin: No rashes, No breakdown Musculoskeletal: No Tenderness to Palpation of Joints or Extremities Neurological: Cranial nerves II-XII grossly intact Psych/Mental Status: Normal Affect, Appropriate, Alert and oriented to time, place, person, mood and affect Vital Signs Temp Pulse Resp BP Pulse Ox 98.4 F 64 16 129/78 H 97 12/04/17 11:10 12/04/17 11:10 12/04/17 11:10 12/04/17 11:10 12/04/17 11:10 Oxygen Delivery Method Room Air Weight: 194 lb 3.636 oz Body Mass Index (BMI) 26.3 Intake and Output for Last 24 Hours 12/02/17 12/03/17 12/04/17 23:59 23:59 23:59 Intake Total 721 / 721 Output Total Balance - 721 / 721 Laboratory Tests Past 24 Hrs 12/03/17 12/04/17 12/04/17 23:10 05:00 05:00 WBC RBC Hgb Hct MCV MCH MCHC RDW RDW Differential Plt Count MPV Immature Gran % (Auto) Neut % (Auto) Lymph % (Auto) [place] % (Auto) Eos % (Auto) Baso % (Auto) Absolute Neuts (auto) Absolute Lymphs (auto) Total Counted PT 14.2 INR 1.1 Sodium 143 Potassium 4.3 Chloride 112 H Carbon Dioxide 24.0 Anion Gap 7 BUN 13 Creatinine 1.17 Estim Creat Clear Calc 82.91 Est GFR (MDRD) Af Amer 85 Est GFR (MDRD) Non-Af 70 BUN/Creatinine Ratio 11.1 Glucose 82 Calcium 8.1 L Iron TIBC Iron Saturation Blood Type A POSITIVE Antibody Screen NEGATIVE Crossmatch See Detail 12/04/17 12/04/17 05:00 05:00 WBC 8.3 RBC 3.32 L Hgb 7.4 L Hct 25.5 L MCV 76.8 L MCH 22.3 L MCHC 29.0 L RDW 15.6 H RDW Differential 43.8 Plt Count 323 MPV 9.2 Immature Gran % (Auto) 0.200 Neut % (Auto) 70.2 H Lymph % (Auto) 17.4 L [place] % (Auto) 8.3 Eos % (Auto) 3.2 Baso % (Auto) 0.7 Absolute Neuts (auto) 5.8 Absolute Lymphs (auto) 1.45 Total Counted Not Reportable PT INR Sodium Potassium Chloride Carbon Dioxide Anion Gap BUN Creatinine Estim Creat Clear Calc Est GFR (MDRD) Af Amer Est GFR (MDRD) Non-Af BUN/Creatinine Ratio Glucose Calcium Iron 10 L TIBC 399 Iron Saturation 2.5 L Blood Type Antibody Screen Crossmatch POC Glucose 12/04/17 10:05 POC Glucose 80 Medical Necessity - Tobacco Use Smoking Status: Current some day smoker Tobacco Use: Cigars Assessment/Plan All Active Problems (Last Updated 12/03/17 @ 17:48 by Terence Jackson DO) Dehydration (Acute) Hypomagnesemia (Acute) Gastrointestinal bleeding (Acute) Anemia (Acute) Acute blood loss anemia (Acute) Exacerbation of Crohn's disease (Acute) Exacerbation of Crohn's disease (Ruled-out) 1. Acute crohn's exacerbation - started solumedrol, cipro, flagyl, continue supportive care. Pt waiting to transfer to [facility] where he gets his care normally. CT with gastroenteritis. No fever / wbc elevation. Pain present but controlled. 2. Acute blood loss anemia with near syncope with activity 2/2 GI bleeding 2/2 crohns exacerbation - Transfuse 1 unit held blood products. iron studies poor and microcytic. venofer 200 qdx3. Recheck h/h 6pm, am. 3. Hx MS - reportedly induced by a biologic agent for crohns 4. GERD - protonix iv DVT ppx: scds DC planning: tx to [facility] when accepted This patient was seen by Bautista Celeste PA-C under the supervision of Doctor Luciano. <Jose Armando Wolf - Last Filed: 12/04/17 13:54> - Physical Exam Vital Signs Temp Pulse Resp BP Pulse Ox 98.4 F 70 16 120/79 94 12/04/17 12:10 12/04/17 12:54 12/04/17 12:54 12/04/17 12:54 12/04/17 12:54 Oxygen Delivery Method Room Air Weight: 88.1 kg Body Mass Index (BMI) 26.3 Intake and Output for Last 24 Hours 12/02/17 12/03/17 12/04/17 23:59 23:59 23:59 Intake Total 2523 / 2523 Output Total Balance - 2522 / 2522 Laboratory Tests Past 24 Hrs 12/03/17 12/04/17 12/04/17 23:10 05:00 05:00 WBC RBC Hgb Hct MCV MCH MCHC RDW RDW Differential Plt Count MPV Immature Gran % (Auto) Neut % (Auto) Lymph % (Auto) [place] % (Auto) Eos % (Auto) Baso % (Auto) Absolute Neuts (auto) Absolute Lymphs (auto) Total Counted PT 14.2 INR 1.1 Sodium 143 Potassium 4.3 Chloride 112 H Carbon Dioxide 24.0 Anion Gap 7 BUN 13 Creatinine 1.17 Estim Creat Clear Calc 82.91 Est GFR (MDRD) Af Amer 85 Est GFR (MDRD) Non-Af 70 BUN/Creatinine Ratio 11.1 Glucose 82 Calcium 8.1 L Iron TIBC Iron Saturation Blood Type A POSITIVE Antibody Screen NEGATIVE Crossmatch See Detail 12/04/17 12/04/17 05:00 05:00 WBC 8.3 RBC 3.32 L Hgb 7.4 L Hct 25.5 L MCV 76.8 L MCH 22.3 L MCHC 29.0 L RDW 15.6 H RDW Differential 43.8 Plt Count 323 MPV 9.2 Immature Gran % (Auto) 0.200 Neut % (Auto) 70.2 H Lymph % (Auto) 17.4 L [place] % (Auto) 8.3 Eos % (Auto) 3.2 Baso % (Auto) 0.7 Absolute Neuts (auto) 5.8 Absolute Lymphs (auto) 1.45 Total Counted Not Reportable PT INR Sodium Potassium Chloride Carbon Dioxide Anion Gap BUN Creatinine Estim Creat Clear Calc Est GFR (MDRD) Af Amer Est GFR (MDRD) Non-Af BUN/Creatinine Ratio Glucose Calcium Iron 10 L TIBC 399 Iron Saturation 2.5 L Blood Type Antibody Screen Crossmatch POC Glucose 12/04/17 10:05 POC Glucose 80 Assessment/Plan This patient was seen in conjunction with Bautista Celeste PA-C. I have independently interviewed and examined the patient and reviewed pertinent historical, laboratory, and other data. Please refer to Bautista Celeste PA-C note for details of this patient's presentation, findings, and recommendations. I have reviewed Bautista Celeste PA-C note and concur with documented findings. In brief, patient is a 52-year-old gentleman with past medical history significant for Crohn's disease, history of multiple sclerosis, GERD who presented with abdominal pain and bleeding per rectum and assessment of acute Crohn's exacerbation was made admitted to monitored bed for further management Physical Examination: GENERAL: Appears ill looking HEENT: Pallor of the conjunctiva NECK; supple, normal thyroid, CHEST: Clear to auscultation bilaterally, HEART: Regular S1 S2, no audible murmurs ABDOMEN: As from previous surgical incisions RECTAL: deferred EXTREMITIES: No edema, no clubbing, no cyanosis. [employer]ICAL PLANT EMPLOYEE: Awake; no lateralizing signs. SKIN: No Rash Assessment: 1. Acute Crohn's exacerbation 2. Anemia secondary to acute blood loss anemia 3. Multiple sclerosis 4. GERD 5. ZORAIDA Virus positive 6. JAYE on CPAP 7. History of depression Recommendations: 1. I have discussed the results of my overview and impressions with the patient 2. Options for management were reviewed Code Visit Inpatient E&M: 47437 Subs Hosp L3
[2017-12-04] MEDS: Dextrose 5%/0.9% NaCl 1,000 ML 150 ML IV ×2 (11:15→22:44)
--- NOTE | 2017-12-04 12:31 | CHAPLAIN ---
patient was sound asleep at both attempts to make a visit; left calling card
[2017-12-04] MEDS: HYDROmorphone 0.5 MG/0.5 ML SYRINGE IV ×2 (15:16→20:12)
[2017-12-04] MEDS: MethylPREDNISolone 125 MG/2 ML Vial 60 MG IV ×2 (15:16→21:07)
[2017-12-04] MEDS: Ondansetron ODT 4 MG Tablet PO ×2 (15:16→21:04)
[2017-12-04 21:19] LABS: Hematocrit 29.1 % (40-54); Hemoglobin 8.7 g/dl (13.0-16.5)
--- NOTE | 2017-12-04 21:22 | PCM.CONS.B ---
- Consult Date of Consult: 12/04/17 - Reason for Consult Deyvi Stover Jr 1965 CHIEF COMPLAINT: anemia HPI: I was consulted by the hospitalist service for evaluation of patient's anemia. The patient has Crohn's disease and relates that he only has about 300 cm of small bowel remaining after multiple small bowel resections. He also has known chronic abdominal pain. I had placed a portacath in the patient in August for IV access for IV Entyivo and iron. He was admitted to [facility] for anemia with Hgb of 7.8. Patient had complaint of left upper quadrant abdominal pain that had been worsening for the past week. He is pending transfer to [facility], however, presently they have no beds available. The hospitalist service asked me to see the patient for possible GI bleeding. PAST MEDICAL HISTORY Abdominal pain, other specified site Adverse effect of iron and its compounds, initial encounter 07/09/2017 Adverse effect of iron and its compounds, initial encounter 07/09/2017 Anemia of chronic disease Brain stem lesion Crohn's disease (HCC) Diplopia Esotropia of right eye Fracture hand foot right arm Hypertension Kidney disease, chronic, stage III (GFR 30-59 ml/min) Localized superficial swelling, mass, or lump MS (multiple sclerosis) ([facility]) 08/2011 JAYE (obstructive sleep apnea) 09/28/2016 Osteoporosis Other psoriasis and similar disorders Personal history of unspecified urinary disorder Regional enteritis of unspecified site 1987 Rheumatoid arthritis(714.0) Seizures (HCC) Unspecified sleep apnea wears CPAP PAST SURGICAL HISTORY COLONOSCOP W/ OR W/O [facility] SPEC 03/27/12 COLONOSCOP W/ OR W/O [facility] SPEC 09/17/2012 COLONOSCOPY W/BX ileitis EGD W/O OR W/BRUSH/WASH I & D, COMP POSTOP INFECTION 05-23-12 I&D ABSCESS COMP/MULTI 12/2013 right knee staph LAP SURG APPENDECTOMY 1986 PAST SURGICAL HISTORY OF\ 1987, 1999,2006 2008 4 small bowel surgeries PAST SURGICAL HISTORY OF 2001 right knee PAST SURGICAL HISTORY OF scar removed (lower left abd area) PAST SURGICAL HISTORY OF 02/2009 double hernia with mesh PICC LINE INSERT/CONSULT 10/05/2016 PICC LINE INSERT/CONSULT 12/03/2016 REM LESIO TRUNK,ARM,LEG 2.1-3.0CM 09-30-12 WOUND CLOSURE 05/23/12 wound closure of staph infection PAST INJURIES Denies head injuries, left ankle fracture in youth MEDICATIONS: buPROPion (WELLBUTRIN) 75 mg tablet Take 1 tablet by mouth twice daily. dextroamphetamine-amphetamine (ADDERALL) 10 mg tablet Take 1 tablet by mouth twice daily for 30 days.Earliest Fill Date: 08/13/17 Cholecalciferol, Vitamin D3, 2,000 unit cap Take 1 capsule by mouth once daily. vedolizumab (ENTYVIO) 300 mg injection 300mg Intravenous every 6 weeks. ondansetron orally disintegrating (ZOFRAN ODT) 8 mg disintegrating tablet Take 1 tablet by mouth every 12 hours as needed. cyanocobalamin 1,000 mcg/mL soln Inject 1 mL intramuscularly once every month. Syringe with Needle, Disp, (TUBERCULIN SYRINGE) 1 mL 25 gauge x 5/8 syrg For patients vitamin B 12 injections. COMPOUNDED PRESCRIPTION Vestibular Physical Therapy Diagnosis: Dizziness, BPPV oxyCODONE-acetaminophen (PERCOCET 10) 10-325 mg tablet Take 1 tablet by mouth as directed. using one tablet 5 times/day diphenoxylate-atropine (LOMOTIL) 2.5-0.025 mg per tablet Take 1 tablet by mouth as needed. Syringe with Needle, Safety 3 mL 23 gauge x 1 syrg 1 Syringe once every month. pregabalin (LYRICA) 150 mg capsule Take 1 capsule by mouth twice daily. pantoprazole DR (PROTONIX) 40 mg tablet Take 1 tablet by mouth DAILY (6 AM). Rpowukvhjhlng-Wwuxgrpv-Zuojqs (CENTRUM SILVER) ORAL Tab Take 1 tablet by mouth once daily. 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 Eyes: The patient denies glaucoma, denies eye injury/surgery, does not wear glasses or contacts. Ear/Nose/Throat: The patient denies allergies, denies hayfever, denies ear infections, and denies bloody noses. Cardiovascular: The patient denies chest pain, denies heart disease, NOTES high blood pressure,denies cardiac stent, denies prior heart attack, denies irregular heart beat, denies high cholesterol, denies poor circulation, denies heart failure, other cardiac issues, denies claudication, denies cold feet, denies peripheral arterial stent. Respiratory: The patient denies tuberculosis, denies pneumonia, denies frequent cough, denies pulmonary embolism, denies shortness of breath, and denies coughing up blood. Gastrointestinal: The patient denies difficulty swallowing, NOTES acid reflux, denies ulcers, denies vomiting, denies jaundice/hepatitis, NOTES gallbladder problems, denies black or tarry stools, denies hemorrhoids, NOTES bleeding from rectum, denies diverticulitis, denies constipation, NOTES diarrhea, denies loss of stool control, and denies hernias. Kidney/Bladder: The patient denies kidney stones, denies urine infections, and denies bloody urine. Skin: The patient denies a history of skin cancer, denies bleeding/changing moles, and denies a history of skin rash. Neurologic: The patient denies a history of epilepsy/convulsions, denies headaches, denies head/spinal injuries, and denies stroke/TIA. Psychiatric: The patient denies psychiatric medications, denies depression, and denies voices, denies substance abuse. Endocrine: The patient denies thyroid disorders, denies diabetes, and denies hormonal problems. Hematologic: The patient denies a history of bruising, notes bleeding, and denies anemia, denies blood clots. Infections: The patient denies a history of measles and mumps, denies rheumatic fever, and denies sexually transmitted diseases. Musculoskeletal: The patient denies back pain/injury, NOTES back problems, denies sciatica, denies knee/foot trouble, denies arthritis, or denies gout. PHYSICAL EXAMINATION: General: The patient is 52 year old male, well nourished, well hydrated in no acute distress. The patient is oriented to time, place, and person. VITALS: Blood pressure 140/100, pulse 84, height 182.9 cm (6'), weight 92.5 kg (204 lb). Body mass index is 27.67 kg/(m^2). Head Normocephalic. EOM intact with sclera clear and no icterus noted. Mouth with mucus membranes moist. Neck - supple with no jugular venous distention noted. Trachea is midline. No carotid bruits noted. No masses noted. Chest - left portacath in place Lungs clear to auscultation. Normal breath sounds. No rales/rhonchi/wheezing noted. No labored breathing noted, such as retractions. Heart normal S1 and S2 auscultated. No rubs/clicks/murmurs noted. Regular rate. Abdomen soft and benign. multiple abdominal incisional scars. Normal bowel sounds. No abdominal bruits noted. Extremities no calf tenderness noted. No pitting edema noted. Skin normal skin integrity. Neurological no focal deficits Psych calm and appropriate IMPRESSION: anemia PLAN: I have discussed the above with the patient. While patient is awaiting for transfer to [facility], I have offered EGD tomorrow morning if patient is still at [facility]. I have explained procedure to patient. I have counseled the patient as to the risks of the procedure, including but not limited to: infection, bleeding, peforation of the GI tract, complications of anesthesia, etc. the patient understands. He agrees to proceed. I have answered all questions to the patients satisfaction and the patient has no further questions
--- NOTE | 2017-12-04 21:32 | CON.PCM_ITS ---
- Consult Date of Consult: 12/04/17 - Reason for Consult Deyvi Stover Jr 1965 CHIEF COMPLAINT: anemia HPI: I was consulted by the hospitalist service for evaluation of patient's anemia. The patient has Crohn's disease and relates that he only has about 300 cm of small bowel remaining after multiple small bowel resections. He also has known chronic abdominal pain. I had placed a portacath in the patient in August for IV access for IV Entyivo and iron. He was admitted to [facility] for anemia with Hgb of 7.8. Patient had complaint of left upper quadrant abdominal pain that had been worsening for the past week. He is pending transfer to [facility], however, presently they have no beds available. The hospitalist service asked me to see the patient for possible GI bleeding. PAST MEDICAL HISTORY Abdominal pain, other specified site Adverse effect of iron and its compounds, initial encounter 07/09/2017 Adverse effect of iron and its compounds, initial encounter 07/09/2017 Anemia of chronic disease Brain stem lesion Crohn's disease (HCC) Diplopia Esotropia of right eye Fracture hand foot right arm Hypertension Kidney disease, chronic, stage III (GFR 30-59 ml/min) Localized superficial swelling, mass, or lump MS (multiple sclerosis) ([facility]) 08/2011 JAYE (obstructive sleep apnea) 09/28/2016 Osteoporosis Other psoriasis and similar disorders Personal history of unspecified urinary disorder Regional enteritis of unspecified site 1987 Rheumatoid arthritis(714.0) Seizures (HCC) Unspecified sleep apnea wears CPAP PAST SURGICAL HISTORY COLONOSCOP W/ OR W/O [facility] SPEC 03/27/12 COLONOSCOP W/ OR W/O [facility] SPE[facility] 09/17/2012 COLONOSCOPY W/BX ileitis EGD W/O OR W/BRUSH/WASH I & D, COMP POSTOP INFECTION 05-23-12 I&D ABSCESS COMP/MULTI 12/2013 right knee staph LAP SURG APPENDECTOMY 1986 PAST SURGICAL HISTORY OF\ 1987, 1999,2006 2008 4 small bowel surgeries PAST SURGICAL HISTORY OF 2001 right knee PAST SURGICAL HISTORY OF scar removed (lower left abd area) PAST SURGICAL HISTORY OF 02/2009 double hernia with mesh PICC LINE INSERT/CONSULT 10/05/2016 PICC LINE INSERT/CONSULT 12/03/2016 REM LESIO TRUNK,ARM,LEG 2.1-3.0CM 09-30-12 WOUND CLOSURE 05/23/12 wound closure of staph infection PAST INJURIES Denies head injuries, left ankle fracture in youth MEDICATIONS: buPROPion (WELLBUTRIN) 75 mg tablet Take 1 tablet by mouth twice daily. dextroamphetamine-amphetamine (ADDERALL) 10 mg tablet Take 1 tablet by mouth twice daily for 30 days.Earliest Fill Date: 08/13/17 Cholecalciferol, Vitamin D3, 2,000 unit cap Take 1 capsule by mouth once daily. vedolizumab (ENTYVIO) 300 mg injection 300mg Intravenous every 6 weeks. ondansetron orally disintegrating (ZOFRAN ODT) 8 mg disintegrating tablet Take 1 tablet by mouth every 12 hours as needed. cyanocobalamin 1,000 mcg/mL soln Inject 1 mL intramuscularly once every month. Syringe with Needle, Disp, (TUBERCULIN SYRINGE) 1 mL 25 gauge x 5/8 syrg For patients vitamin B 12 injections. COMPOUNDED PRESCRIPTION Vestibular Physical Therapy Diagnosis: Dizziness, BPPV oxyCODONE-acetaminophen (PERCOCET 10) 10-325 mg tablet Take 1 tablet by mouth as directed. using one tablet 5 times/day diphenoxylate-atropine (LOMOTIL) 2.5-0.025 mg per tablet Take 1 tablet by mouth as needed. Syringe with Needle, Safety 3 mL 23 gauge x 1 syrg 1 Syringe once every month. pregabalin (LYRICA) 150 mg capsule Take 1 capsule by mouth twice daily. pantoprazole DR (PROTONIX) 40 mg tablet Take 1 tablet by mouth DAILY (6 AM). Wkwrdbqxxmxgl-Dpqgyeob-Oolgrn (CENTRUM SILVER) ORAL Tab Take 1 tablet by mouth once daily. 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 Eyes: The patient denies glaucoma, denies eye injury/surgery, does not wear glasses or contacts. Ear/Nose/Throat: The patient denies allergies, denies hayfever, denies ear infections, and denies bloody noses. Cardiovascular: The patient denies chest pain, denies heart disease, NOTES high blood pressure,denies cardiac stent, denies prior heart attack, denies irregular heart beat, denies high cholesterol, denies poor circulation, denies heart failure, other cardiac issues, denies claudication, denies cold feet, denies peripheral arterial stent. Respiratory: The patient denies tuberculosis, denies pneumonia, denies frequent cough, denies pulmonary embolism, denies shortness of breath, and denies coughing up blood. Gastrointestinal: The patient denies difficulty swallowing, NOTES acid reflux, denies ulcers, denies vomiting, denies jaundice/hepatitis, NOTES gallbladder problems, denies black or tarry stools, denies hemorrhoids, NOTES bleeding from rectum, denies diverticulitis, denies constipation, NOTES diarrhea , denies loss of stool control, and denies hernias. Kidney/Bladder: The patient denies kidney stones, denies urine infections , and denies bloody urine. Skin: The patient denies a history of skin cancer, denies bleeding/ changing moles, and denies a history of skin rash. Neurologic: The patient denies a history of epilepsy/convulsions, denies headaches, denies head/spinal injuries, and denies stroke/TIA. Psychiatric: The patient denies psychiatric medications, denies depression , and denies voices, denies substance abuse. Endocrine: The patient denies thyroid disorders, denies diabetes, and denies hormonal problems. Hematologic: The patient denies a history of bruising, notes bleeding, and denies anemia, denies blood clots. Infections: The patient denies a history of measles and mumps, denies rheumatic fever, and denies sexually transmitted diseases. Musculoskeletal: The patient denies back pain/injury, NOTES back problems , denies sciatica, denies knee/foot trouble, denies arthritis, or denies gout. PHYSICAL EXAMINATION: General: The patient is 52 year old male, well nourished, well hydrated in no acute distress. The patient is oriented to time, place, and person. VITALS: Blood pressure 140/100, pulse 84, height 182.9 cm (6'), weight 92.5 kg ( 204 lb). Body mass index is 27.67 kg/(m^2). Head Normocephalic. EOM intact with sclera clear and no icterus noted. Mouth with mucus membranes moist. Neck - supple with no jugular venous distention noted. Trachea is midline. No carotid bruits noted. No masses noted. Chest - left portacath in place Lungs clear to auscultation. Normal breath sounds. No rales/rhonchi/wheezing noted. No labored breathing noted, such as retractions. Heart normal S1 and S2 auscultated. No rubs/clicks/murmurs noted. Regular rate. Abdomen soft and benign. multiple abdominal incisional scars. Normal bowel sounds. No abdominal bruits noted. Extremities no calf tenderness noted. No pitting edema noted. Skin normal skin integrity. Neurological no focal deficits Psych calm and appropriate IMPRESSION: anemia PLAN: I have discussed the above with the patient. While patient is awaiting for transfer to [facility], I have offered EGD tomorrow morning if patient is still at [facility]. I have explained procedure to patient. I have counseled the patient as to the risks of the procedure, including but not limited to: infection, bleeding, peforation of the GI tract, complications of anesthesia, etc. the patient understands. He agrees to proceed. I have answered all questions to the patients satisfaction and the patient has no further questions
[2017-12-05] VITALS (12 sets, daily range): BP systolic 101–152; BP diastolic 60–98; PULSE 69–91; RESP 16–18; TEMP 36.2–37.1; O2SAT 96–100; BMI 26.4
[2017-12-05] MEDS: HYDROmorphone 0.5 MG/0.5 ML SYRINGE IV ×3 (02:19→14:21)
[2017-12-05] MEDS: 0.9% NaCl VAD Flush 10 ML IV ×4 (02:21→14:21)
[2017-12-05] MEDS: MethylPREDNISolone 125 MG/2 ML Vial 60 MG IV (05:11)
[2017-12-05] MEDS: Dextrose 5%/0.9% NaCl 1,000 ML 150 ML IV ×2 (05:11→14:31)
[2017-12-05 06:10] LABS: Partial Thromboplast Time 39.6 Seconds (24.1-36.2)
[2017-12-05 06:20] LABS: AST(SGOT) 13 U/L (15-37); Absolute Lymphocyte Count 0.28 X10^3/ul (0.83-4.51); Absolute Neutrophil Count 4.3 X10^3/uL (2.0-7.7); Alanine Aminotransfer ALT/SGPT 21 U/L (16-61); Albumin, Serum 2.6 g/dL (3.2-5.0); Alkaline Phosphatase 42 U/L (45-117); Anion Gap 6 (5-15); BUN 8 mg/dL (7-18); BUN/Creat Ratio 7.1 RATIO (10-20); Bilirubin, Direct 0.06 mg/dL (0.00-0.30); Chloride 112 mmol/L (98-107); Creatinine, Serum 1.13 mg/dL (0.70-1.30); EST Glomerular Filtration Rate 73 mL/min (>60); Est Glom Filt Rate - Afr Amer 88 mL/min (>60); Estimated Creatinine Clearance 85.84 ml/min; Globulin 3.5 g/dL (2.2-4.2); Glucose 143 mg/dL (74-106); Hematocrit 27.5 % (40-54); Hemoglobin 8.3 g/dl (13.0-16.5); Lymphocyte # 0.28 X10^3/ul (4.0); Lymphocyte % 6.1 % (19-41); Mean Corp Hgb Conc 30.2 g/gl (32-36); Mean Corpuscular Volume 76.2 fL (80-94); Mean Platelet Vol. 9.2 fl (6.2-12.0); Monocyte# 0.03 X10^3/uL; Monocyte% 0.6 % (0-10); Neutrophil # 4.31 X10^3/uL (2.7-7.7); Neutrophil % 93.3 % (47-70); Platelet Count 346 K/mm3 (150-450); Potassium 4.2 mmol/L (3.5-5.1); Protein, Total 6.1 g/dL (6.4-8.2); RBC Distribution Width CV 14.9 % (11.6-14.6); RBC Distribution Width SD 40.4 fl (35.1-43.9); Red Blood Count 3.61 M/mm3 (4.6-6.2); Sodium Level 143 mmol/L (136-145); White Blood Count 4.6 K/mm3 (4.4-11.0)
[2017-12-05 06:23] LABS: Differential Indicated SCAN CRITERIA MET; POSITIVE COUNT NO; POSITIVE DIFFERENTIAL YES; POSITIVE MORPHOLOGY NO
--- NOTE | 2017-12-05 08:40 | NURSING ---
Called report to Service Crew Supervisor
--- NOTE | 2017-12-05 10:08 | PCM.OPRPT ---
Report of Operation Date of Procedure: 12/05/17 Pre-Operative Diagnosis: anemia, melena, heme positive stools Post-Operative Diagnosis: same, normal EGD Surgery/Procedure Performed:: EGD Description of Surgical Findings:: normal esophagus, normal stomach, normal first and second portion of duodenum - no evidence of hemorrhage Type of Anesthesia:: MAC Anesthesiologist: Goyo Erwin Specimen's removed: none Estimated Blood Loss (mL): none Fluids Replaced: 250 ml RL Description of Procedure: After informed consent was given, the patient was brought to the endoscopy suite and placed in the upright sitting position. Appropriate time out protocol was followed. Appropriate cardiac, blood pressure, and pulse oximetry monitoring was placed. After stable vital signs were noted, the patient was given intravenous conscious sedation. The posterior pharynx was sprayed with lidocaine spray times two and a bite block was placed. The patient was then placed in the left lateral decubitis position. The upper endoscope was lubricated and inserted into the patients mouth and then carefully placed into the patients throat. The patient was asked to swallow and the endoscope was then easily advanced into the patients esophagus. The endoscope was further advanced down into the patients stomach, then past the pylorus, then past the duodenal bulb and then to the second portion of the duodenum. There were no lesions noted in the duodenum. The endoscope was then retracted back into the stomach. A retroflex view of the stomach revealed no evidence of any masses. No ulcers, no strictures, no suspicious lesions were noted. The endoscope was retracted into the esophagus, where any insufflated gas in the stomach was aspirated out. The gastroesophageal junction appeared normal. No ulcers/masses/inflammatory lesions were noted throughout the EGD procedure. No evidence of bleeding was noted. The remainder of the esophagus was normal. The upper endoscope was removed intact. Patient tolerated procedure well. - Complications none noted - Admit VTE Documentation VTE Present on Admission: Yes VTE Mechan Device Prophylaxis: SCD's
--- NOTE | 2017-12-05 10:11 | OP.PCM_ITS ---
Report of Operation Date of Procedure: 12/05/17 Pre-Operative Diagnosis: anemia, melena, heme positive stools Post-Operative Diagnosis: same, normal EGD Surgery/Procedure Performed:: EGD Description of Surgical Findings:: normal esophagus, normal stomach, normal first and second portion of duodenum - no evidence of hemorrhage Type of Anesthesia:: MAC Anesthesiologist: Goyo Erwin Specimen's removed: none Estimated Blood Loss (mL): none Fluids Replaced: 250 ml RL Description of Procedure: After informed consent was given, the patient was brought to the endoscopy suite and placed in the upright sitting position. Appropriate time out protocol was followed. Appropriate cardiac, blood pressure, and pulse oximetry monitoring was placed. After stable vital signs were noted, the patient was given intravenous conscious sedation. The posterior pharynx was sprayed with lidocaine spray times two and a bite block was placed. The patient was then placed in the left lateral decubitis position. The upper endoscope was lubricated and inserted into the patient?s mouth and then carefully placed into the patient?s throat. The patient was asked to swallow and the endoscope was then easily advanced into the patient?s esophagus. The endoscope was further advanced down into the patient?s stomach, then past the pylorus, then past the duodenal bulb and then to the second portion of the duodenum. There were no lesions noted in the duodenum. The endoscope was then retracted back into the stomach. A retroflex view of the stomach revealed no evidence of any masses. No ulcers, no strictures, no suspicious lesions were noted. The endoscope was retracted into the esophagus, where any insufflated gas in the stomach was aspirated out. The gastroesophageal junction appeared normal. No ulcers/ masses/inflammatory lesions were noted throughout the EGD procedure. No evidence of bleeding was noted. The remainder of the esophagus was normal. The upper endoscope was removed intact. Patient tolerated procedure well. - Complications none noted - Admit VTE Documentation VTE Present on Admission: Yes VTE Mechan Device Prophylaxis: SCD's
[2017-12-05] MEDS: Pregabalin 75 MG Capsule 150 MG PO (12:27)
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
--- NOTE | 2017-12-05 13:10 | NURSING ---
Patient was informed that [facility] has a bed for him. Patient initially refused to go. RN spoke with MAYITO Polanco and made her aware. Patient then asked for RN to return to his room. Patient states that he will go to the [facility]. Told RN I am going to call her to bring me a burger. RN explained to patient that he should not eat the burger as he is on a clear liquid diet and RN is unsure what his POC will be at the [facility]. Patient states Oh, well. They will have to deal with it.
--- NOTE | 2017-12-05 13:29 | PCM.DC.SUM ---
<Swathi Jacinto - Last Filed: 12/05/17 13:41> Discharge Date and Diagnosis Date of Admission: 12/03/17 Date of Discharge: 12/05/17 - Primary Discharge Diagnosis Active and Suspected Problems (Last Updated 12/03/17 @ 17:48 by Terence Jackson DO) 1. Acute Crohn's exacerbation 2. Acute blood loss anemia with associated near syncope secondary to GI bleed as a result of Crohn's exacerbation-status post 1 unit packed red blood cell transfusion - Secondary Discharge Diagnosis Chronic Problems (Last Updated 12/03/17 @ 17:48 by Terence Jackson DO) History of depression (Chronic) History of Crohn's disease (Chronic) History of gastroesophageal reflux (GERD) (Chronic) ZORAIDA Virus positive (Chronic) History of multiple sclerosis (Chronic) Overweight (BMI 25.0-29.9) (Chronic) Gall bladder disease (Chronic) JAYE on CPAP (Chronic) Hospital Course and Treatment Imaging Results: Diagnostic Data Acute Abdomen Series 12/03/17 15:17 IMPRESSION: Nonspecific bowel gas pattern. Electronically Signed: Gordo Smith MD at 15:33 EDT Tel [phone], Service support , Abdomen/Pelvis CT 12/03/17 21:23 IMPRESSION: There is a persistent fluid distended appearance of the colon is suggestive of a gastroenteritis type pattern with fluid-filled distended loops of large greater than small bowel. There is postoperative change in the right upper quadrant. Could consider ileus. Postoperative change mid abdomen. Stable bilateral renal cysts. Electronically Signed: Alejandra Srinivasan MD at 22:36 EDT Tel , Service support , Dr. Cruz- General surgery Operations: None Procedures: EGD Summary of Care Provided: The patient is a 52 year old M admitted 12/03/2017 due to left lower quadrant abdominal pain with melena. Patient has a past medical history of Crohn's disease, obstructive sleep apnea on CPAP, GERD, ZORAIDA virus positive, MS, depression. Patient has a history of multiple small bowel resections. Dr. Cruz, general surgery consulted. Patient underwent EGD 12/05/2017 which demonstrated normal esophagus, normal stomach, normal first and second portion of duodenum. Patient will be transferred to [facility] for further evaluation given he has had his previous care at [facility]. Patient suspected to have acute Crohn's exacerbation with associated acute blood loss anemia secondary to GI bleed. Patient did receive 1 unit packed red blood cell. Patient treated with Solu-Medrol, IV iron, Cipro and Flagyl during admission. CT demonstrated gastroenteritis. Hemoglobin stable at discharge, 8.3. Patient denies dizziness, presyncope. Stable for transfer to [facility]. General: Alert, Oriented x3, Cooperative HEENT: Atraumatic, PERRLA, EOMI, Normocephalic Neck: Supple, No JVD, Negative Carotid Bruits Lungs: Clear to auscultation, Normal air movement Cardiovascular: Regular rate, No murmurs Abdomen: Bowel Sounds Present, Soft, Non Tender, left lower quadrant tenderness Extremities: No edema, Capillary Refill Less than 3 Seconds Skin: No rashes, No breakdown Musculoskeletal: No Tenderness to Palpation of Joints or Extremities Neurological: Cranial nerves II-XII grossly intact Psych/Mental Status: Normal Affect, Appropriate Patient seen and examined prior to transfer. Physical assessment as noted above. Patient stable at time of transfer. This patient was seen by ANTONIA Mcdaniel under the supervision of Dr. Wolf. Home Medications: Medications to take at Discharge Pantoprazole Sodium [Protonix] 20 mg PO DAILY 01/31/16 Cyanocobalamin (Vitamin B-12) [B-12 Compliance] 1,000 mcg IJ QMONTH 09/05/17 Dextroamphetamine/Amphetamine [Adderall 10 mg Tablet] 10 mg PO BID 09/05/17 Ergocalciferol [Vitamin D] 50,000 unit PO Q7D 09/05/17 Ondansetron [Zofran Odt] 4 mg PO PRN PRN 09/05/17 Pregabalin [Lyrica] 150 mg PO BID 09/05/17 Vedolizumab [Entyvio] 300 mg IV X1 09/05/17 Multivitamin [Daily Multiple Vitamin] 1 each PO DAILY 12/03/17 Primary Care Physician: Becca Le DO [Primary Care Provider] - Disposition: Acute care Hospital Minutes spent on discharge:: 35 Patient Condition:: Stable Medical Necessity - Tobacco Use Smoking Status: Current some day smoker Tobacco Use: Cigars Meaningful Use Info Meaningful Use Diagnoses (Choose all that apply): None applicable <Jose Armando Wolf - Last Filed: 12/05/17 14:01> Discharge Date and Diagnosis - Secondary Discharge Diagnosis Chronic Problems (Last Updated 12/03/17 @ 17:48 by Terence Jackson DO) History of depression (Chronic) History of Crohn's disease (Chronic) History of gastroesophageal reflux (GERD) (Chronic) ZORAIDA Virus positive (Chronic) History of multiple sclerosis (Chronic) Overweight (BMI 25.0-29.9) (Chronic) Gall bladder disease (Chronic) JAYE on CPAP (Chronic) Hospital Course and Treatment Summary of Care Provided: This patient was seen in conjunction with ANTONIA Mcdaniel. I have independently interviewed and examined the patient and reviewed pertinent historical, laboratory, and other data. Please refer to ANTONIA Mcdaniel note for details of this patient's presentation, findings, and recommendations. I have reviewed ANTONIA Mcdaniel note and concur with documented findings. In brief, patient is a 52-year-old gentleman with past medical history significant for Crohn's disease, history of multiple sclerosis, GERD who presented with abdominal pain and bleeding per rectum and assessment of acute Crohn's exacerbation was made admitted to monitored bed for further management Assessment: 1. Acute Crohn's exacerbation 2. Anemia secondary to acute blood loss anemia 3. Multiple sclerosis 4. GERD 5. ZORAIDA Virus positive 6. JAYE on CPAP 7. History of depression Hospital course as elicited above Time Spent on discharge; 45 minutes Code Visit Inpatient E&M: 78158 Disch Hosp
--- NOTE | 2017-12-05 13:40 | DS.PCM_ITS ---
<Swathi Jacinto - Last Filed: 12/05/17 13:41> Discharge Date and Diagnosis Date of Admission: 12/03/17 Date of Discharge: 12/05/17 - Primary Discharge Diagnosis Active and Suspected Problems (Last Updated 12/03/17 @ 17:48 by Terence Jackson DO ) 1. Acute Crohn's exacerbation 2. Acute blood loss anemia with associated near syncope secondary to GI bleed as a result of Crohn's exacerbation-status post 1 unit packed red blood cell transfusion - Secondary Discharge Diagnosis Chronic Problems (Last Updated 12/03/17 @ 17:48 by Terence Jackson DO) History of depression (Chronic) History of Crohn's disease (Chronic) History of gastroesophageal reflux (GERD) (Chronic) ZORAIDA Virus positive (Chronic) History of multiple sclerosis (Chronic) Overweight (BMI 25.0-29.9) (Chronic) Gall bladder disease (Chronic) JAYE on CPAP (Chronic) Hospital Course and Treatment Imaging Results: Diagnostic Data Acute Abdomen Series 12/03/17 15:17 IMPRESSION: Nonspecific bowel gas pattern. Electronically Signed: Gordo Smith MD at 15:33 EDT Tel [phone], Service support , Abdomen/Pelvis CT 12/03/17 21:23 IMPRESSION: There is a persistent fluid distended appearance of the colon is suggestive of a gastroenteritis type pattern with fluid-filled distended loops of large greater than small bowel. There is postoperative change in the right upper quadrant. Could consider ileus. Postoperative change mid abdomen. Stable bilateral renal cysts. Electronically Signed: Alejandra Srinivasan MD at 22:36 EDT Tel , Service support , Dr. Cruz- General surgery Operations: None Procedures: EGD Summary of Care Provided: The patient is a 52 year old M admitted 12/03/2017 due to left lower quadrant abdominal pain with melena. Patient has a past medical history of Crohn's disease, obstructive sleep apnea on CPAP, GERD, ZORAIDA virus positive, MS, depression. Patient has a history of multiple small bowel resections. Dr. Cruz , general surgery consulted. Patient underwent EGD 12/05/2017 which demonstrated normal esophagus, normal stomach, normal first and second portion of duodenum. Patient will be transferred to [facility] for further evaluation given he has had his previous care at [facility]. Patient suspected to have acute Crohn's exacerbation with associated acute blood loss anemia secondary to GI bleed. Patient did receive 1 unit packed red blood cell. Patient treated with Solu- Medrol, IV iron, Cipro and Flagyl during admission. CT demonstrated gastroenteritis. Hemoglobin stable at discharge, 8.3. Patient denies dizziness , presyncope. Stable for transfer to [facility]. General: Alert, Oriented x3, Cooperative HEENT: Atraumatic, PERRLA, EOMI, Normocephalic Neck: Supple, No JVD, Negative Carotid Bruits Lungs: Clear to auscultation, Normal air movement Cardiovascular: Regular rate, No murmurs Abdomen: Bowel Sounds Present, Soft, Non Tender, left lower quadrant tenderness Extremities: No edema, Capillary Refill Less than 3 Seconds Skin: No rashes, No breakdown Musculoskeletal: No Tenderness to Palpation of Joints or Extremities Neurological: Cranial nerves II-XII grossly intact Psych/Mental Status: Normal Affect, Appropriate Patient seen and examined prior to transfer. Physical assessment as noted above. Patient stable at time of transfer. This patient was seen by ANTONIA Mcdaniel under the supervision of Dr. Wolf. Home Medications: Medications to take at Discharge Pantoprazole Sodium [Protonix] 20 mg PO DAILY 01/31/16 Cyanocobalamin (Vitamin B-12) [B-12 Compliance] 1,000 mcg IJ QMONTH 09/05/17 Dextroamphetamine/Amphetamine [Adderall 10 mg Tablet] 10 mg PO BID 09/05/17 Ergocalciferol [Vitamin D] 50,000 unit PO Q7D 09/05/17 Ondansetron [Zofran Odt] 4 mg PO PRN PRN 09/05/17 Pregabalin [Lyrica] 150 mg PO BID 09/05/17 Vedolizumab [Entyvio] 300 mg IV X1 09/05/17 Multivitamin [Daily Multiple Vitamin] 1 each PO DAILY 12/03/17 Primary Care Physician: Becca Le DO [Primary Care Provider] - Disposition: Acute care Hospital Minutes spent on discharge:: 35 Patient Condition:: Stable Medical Necessity - Tobacco Use Smoking Status: Current some day smoker Tobacco Use: Cigars Meaningful Use Info Meaningful Use Diagnoses (Choose all that apply): None applicable <Jose Armando Wolf - Last Filed: 12/05/17 14:01> Discharge Date and Diagnosis - Secondary Discharge Diagnosis Chronic Problems (Last Updated 12/03/17 @ 17:48 by Terence Jackson DO) History of depression (Chronic) History of Crohn's disease (Chronic) History of gastroesophageal reflux (GERD) (Chronic) ZORAIDA Virus positive (Chronic) History of multiple sclerosis (Chronic) Overweight (BMI 25.0-29.9) (Chronic) Gall bladder disease (Chronic) JAYE on CPAP (Chronic) Hospital Course and Treatment Summary of Care Provided: This patient was seen in conjunction with ANTONIA Mcdaniel. I have independently interviewed and examined the patient and reviewed pertinent historical, laboratory, and other data. Please refer to ANTONIA Mcdaniel note for details of this patient's presentation, findings, and recommendations. I have reviewed ANTONIA Mcdaniel note and concur with documented findings. In brief, patient is a 52-year-old gentleman with past medical history significant for Crohn's disease, history of multiple sclerosis, GERD who presented with abdominal pain and bleeding per rectum and assessment of acute Crohn's exacerbation was made admitted to monitored bed for further management Assessment: 1. Acute Crohn's exacerbation 2. Anemia secondary to acute blood loss anemia 3. Multiple sclerosis 4. GERD 5. ZORAIDA Virus positive 6. JAYE on CPAP 7. History of depression Hospital course as elicited above Time Spent on discharge; 45 minutes Code Visit Inpatient E&M: 48832 Disch Hosp
--- NOTE | 2017-12-05 14:09 | NURSING ---
Report called to FATOU Mark at [facility].
[2017-12-05] MEDS: Ciprofloxacin 400 MG/200 ML BAG 200 MG IV (14:35)
== END 2017-12-05 15:26 | disposition short-term general hospital (02) | DRG 386 ==
LOC: ED 17:23 → PCU 18:35
PROVIDERS: Hospitalist; Physician Assistant; Surgery; Emergency Provider Emergency Medicine; Family Provider Family Medicine; PCP Family Medicine; Visit Provider Internal Medicine
PROC: 0DJ08ZZ Inspection of Upper Intestinal Tract, Via Natural or Artificial Opening Endoscopic (ICD-10-PCS; CPT 43235; principal; 2017-12-05 09:25)
DX: K50.911 Crohn's disease, unspecified, with rectal bleeding (principal); D62 Acute posthemorrhagic anemia; F17.291 Nicotine dependence, other tobacco product, in remission; E86.0 Dehydration; K21.9 Gastro-esophageal reflux disease without esophagitis; G35 Multiple sclerosis; G47.33 Obstructive sleep apnea (adult) (pediatric); F32.9 Major depressive disorder, single episode, unspecified; D63.8 Anemia in other chronic diseases classified elsewhere; N18.3 Chronic kidney disease, stage 3 (moderate); I12.9 Hypertensive chronic kidney disease with stage 1 through stage 4 chronic kidney disease, or unspecified chronic kidney disease; L40.9 Psoriasis, unspecified; M06.9 Rheumatoid arthritis, unspecified
CPT/HCPCS: 36591; 74022; 74177; 80048; 80076; 81001; 82274; 82962; 83540; 83550; 83690; 85014; 85018; 85025; 85610; 85730; 86850; 86900; 86920; 86922; 97162; 97165; 97802; 99281; J1756; J7030; J7040; P9016; Q9967; A4216; J0744; J3490

== ENCOUNTER 2017-12-10 10:21 | Emergency (ER) | payer MEDICARE, MEDICAID, SELFPAY ==
[2017-12-10 10:22] VITALS: BP 162/107; PULSE 88; RESP 19; TEMP 36.6; O2SAT 99; BMI 27.3
--- NOTE | 2017-12-10 10:54 | ED.DCSUM_ITS ---
- ER Visit Summary Date of Service: 12/10/17 Chief Complaint: Abdominal pain and near syncope History of Present Illness: The patient is a 52 M with history of Crohn's disease, just discharged yesterday from [facility] for a Crohn's flare, who presents for continued abdominal pain and a near syncope. Patient states he has had 3 bowel movements today that were diarrhea, and each time he will see stars. The last time he almost passed out. He does not know if there is blood in his stool because he is on many new medications since yesterday, and his stool has changed. No yousif blood noted. Patient has associated left lower quadrant abdominal pain, chills, sweats, nausea. He denies any chest pain or shortness of breath. No other complaints. He was seen 1 week ago for similar symptoms and received blood transfusion due to anemia. He was transferred to [facility] from here and treated for his Crohn's flare. His doctor that manages his flares is at the [facility]. Physical Examination: Vital signs: afebrile, hemodynamically stable, no hypoxia on room air General: well nourished, well developed, in no distress Skin: warm, dry, no rash, no pallor HEENT: normocephalic and atraumatic; PERRL, EOMI, moist mucous membranes Cardiovascular: regular rate and rhythm without murmurs, no peripheral edema, 2 + pulses all distal extremities Respiratory: No increased work of breathing, lungs are clear to auscultation bilaterally, no rales, rhonchi or wheezing Abdominal: Abdomen is soft, tender in the left lower quadrant with normoactive bowel sounds, no guarding or rebound, multiple surgical scars on the abdomen with deformity of the normal abdominal contour, rectal exam shows increased sphincter tone, no hemorrhoids or masses, no blood or stool on glove MSK: Moves all extremities, no deformities, normal strength Neuro: Awake and alert, oriented ?4. No facial droop, sensation and motor function intact and symmetric Test Results: Abnormal Lab Results 12/10/17 12/10/17 12/10/17 11:00 11:00 11:00 WBC 9.4 RBC 3.91 L Hgb 9.0 L Hct 30.6 L MCV 78.3 L MCH 23.0 L MCHC 29.4 L RDW 18.4 H RDW Differential 50.5 H Plt Count 274 MPV 9.0 Immature Gran % (Auto) 0.400 Neut % (Auto) 66.5 Lymph % (Auto) 19.3 [place] % (Auto) 11.4 H Eos % (Auto) 2.3 Baso % (Auto) 0.1 Absolute Neuts (auto) 6.2 Absolute Lymphs (auto) 1.81 Total Counted Not Reportable Sodium 143 Potassium 4.4 Chloride 112 H Carbon Dioxide 24.0 Anion Gap 7 BUN 34 H Creatinine 1.40 H Estim Creat Clear Calc 69.29 Est GFR (MDRD) Af Amer 69 Est GFR (MDRD) Non-Af 57 L BUN/Creatinine Ratio 24.3 H Glucose 81 Lactic Acid 1.4 Calcium 8.2 L Total Bilirubin 0.20 AST 43 H ALT 51 Alkaline Phosphatase 37 L Total Protein 6.3 L Albumin 3.1 L Globulin 3.2 Albumin/Globulin Ratio 1.0 Lipase 261 Urine Color Urine Clarity Urine pH Ur Specific [place] Urine Protein Urine Glucose (UA) Urine Ketones Urine Occult Blood Urine Nitrite Urine Bilirubin Urine Urobilinogen Ur Leukocyte Esterase Urine RBC Urine WBC Ur Squamous Epith Cells Urine Bacteria Hyaline Casts Urine Mucus Blood Type Antibody Screen 12/10/17 12/10/17 11:00 11:35 WBC RBC Hgb Hct MCV MCH MCHC RDW RDW Differential Plt Count MPV Immature Gran % (Auto) Neut % (Auto) Lymph % (Auto) [place] % (Auto) Eos % (Auto) Baso % (Auto) Absolute Neuts (auto) Absolute Lymphs (auto) Total Counted Sodium Potassium Chloride Carbon Dioxide Anion Gap BUN Creatinine Estim Creat Clear Calc Est GFR (MDRD) Af Amer Est GFR (MDRD) Non-Af BUN/Creatinine Ratio Glucose Lactic Acid Calcium Total Bilirubin AST ALT Alkaline Phosphatase Total Protein Albumin Globulin Albumin/Globulin Ratio Lipase Urine Color Yellow Urine Clarity Sl. Cloudy Urine pH 5.0 Ur Specific [place] 1.025 Urine Protein 15 H Urine Glucose (UA) Normal Urine Ketones Negative Urine Occult Blood Negative Urine Nitrite Negative Urine Bilirubin Negative Urine Urobilinogen Normal Ur Leukocyte Esterase Negative Urine RBC 0 SEEN Urine WBC 0 SEEN Ur Squamous Epith Cells 0-5 SEEN Urine Bacteria 0 SEEN Hyaline Casts 0-5 SEEN Urine Mucus 2+ Blood Type A POSITIVE Antibody Screen NEGATIVE Emergency Department Course and Treatment: Patient presents with complaints of near syncope while having bowel movements, severe left lower quadrant pain, and continued diarrhea after being discharged for a Crohn's flare yesterday. Patient's CBC was checked, and his hemoglobin is actually improved, now at 9. Patient had no electrolyte derangements. Renal function was very mildly elevated from his baseline. Lactate normal. Urine negative. Fecal occult was checked and negative. Patient was given a bolus of lactated Ringer's, and afterwards he felt like a new man. We discussed the patient's near syncopal episodes may be secondary to dehydration rather than blood loss, as he is concerned. He agrees and states that he has such frequent diarrhea given his short gut from multiple abdominal surgeries and resections. Patient has a port in place and it is currently accessed, thus he was given 1 more liter of LR for hydration. He felt much better after the hydration. He has an appointment tomorrow with his PCP and at that time we will discuss further strategies to help him stay well hydrated due to increased volume loss from chronic diarrhea from Crohn's. He is going to continue his medications that he was prescribed yesterday at discharge from [facility]. He will also talk to his PCP about referral to a habilitation specialist for his chronic kidney disease. Patient was discharged home with symptoms resolved. Treatment Plan: [] Disposition: [] Impression: Crohn's disease, dehydration This note was generated with [employer] dictation software. It may contain incorrect words, spelling, and punctuation that were not noted in review of the chart prior to signing ED Disposition - Plan for ED Patient: Disposition: Home or Assisted Living Chief Complaint: GI Bleed Instructions: ED Inflam Bowel Disease Crohn, ED Dehydration Referrals: Becca Le DO [Primary Care Provider] - 1 Day Additional Instructions: Keep your appointment with your primary care doctor tomorrow as scheduled. Please drink plenty of fluids as we discussed. You are at increased risk of dehydration because of your multiple bowel surgeries and your limited amount of intestines. Take all prescribed medications as you were instructed at discharge from [facility] yesterday. Follow-up with your doctors as the instructed. If you have any worsening of your condition or any new concerning symptoms, please return immediately to the emergency department for another evaluation.
[2017-12-10] MEDS: Ondansetron 4 MG/2 ML Vial IV (11:10)
[2017-12-10] MEDS: fentaNYL 100 MCG/2 ML Ampul 50 MCG IV (11:11)
[2017-12-10 11:13] LABS: Absolute Lymphocyte Count 1.81 X10^3/ul (0.83-4.51); Absolute Neutrophil Count 6.2 X10^3/uL (2.0-7.7); Basophil# 0.01 X10^3/uL; Basophil% 0.1 % (0-1); Eosinophil# 0.22 X10^3/uL; Eosinophils% 2.3 % (0-5); Hematocrit 30.6 % (40-54); Lymphocyte # 1.81 X10^3/ul (4.0); Lymphocyte % 19.3 % (19-41); Mean Corp Hgb Conc 29.4 g/gl (32-36); Mean Corpuscular Volume 78.3 fL (80-94); Monocyte# 1.07 X10^3/uL; Monocyte% 11.4 % (0-10); Neutrophil # 6.24 X10^3/uL (2.7-7.7); Neutrophil % 66.5 % (47-70); Platelet Count 274 K/mm3 (150-450); RBC Distribution Width CV 18.4 % (11.6-14.6); RBC Distribution Width SD 50.5 fl (35.1-43.9); Red Blood Count 3.91 M/mm3 (4.6-6.2); White Blood Count 9.4 K/mm3 (4.4-11.0)
[2017-12-10 11:15] LABS: POSITIVE COUNT NO; POSITIVE DIFFERENTIAL NO; POSITIVE MORPHOLOGY NO
[2017-12-10 11:29] LABS: AST(SGOT) 43 U/L (15-37); Alanine Aminotransfer ALT/SGPT 51 U/L (16-61); Albumin, Serum 3.1 g/dL (3.2-5.0); Alkaline Phosphatase 37 U/L (45-117); Anion Gap 7 (5-15); BUN 34 mg/dL (7-18); BUN/Creat Ratio 24.3 RATIO (10-20); Calcium,Total 8.2 mg/dL (8.5-10.1); Chloride 112 mmol/L (98-107); EST Glomerular Filtration Rate 57 mL/min (>60); Est Glom Filt Rate - Afr Amer 69 mL/min (>60); Estimated Creatinine Clearance 69.29 ml/min; Globulin 3.2 g/dL (2.2-4.2); Glucose 81 mg/dL (74-106); Lipase 261 U/L (73-393); Potassium 4.4 mmol/L (3.5-5.1); Protein, Total 6.3 g/dL (6.4-8.2); Sodium Level 143 mmol/L (136-145)
[2017-12-10 11:39] LABS: Lactic Acid 1.4 mmol/L (0.4-2.0)
[2017-12-10 11:42] LABS: Bacteria 0 SEEN /hpf (None Seen); Red Blood Cells-Urine 0 SEEN /hpf (0-5); White Blood Cells 0 SEEN /hpf (0-5)
[2017-12-10 11:47] LABS: Color, Urine Yellow (Yellow); Glucose, Dipstick Normal (Normal); Ketone-Dipstick Negative (Negative); Leukocyte Esterase-Dipstick Negative /ul (Negative); Nitrite-Dipstick Negative (Negative); Occult Blood-Urine Negative /ul (Negative); Protein-Dipstick 15 mg/dl (Negative); Specific Gravity, Urine 1.025 (1.002-1.030); Urine Bilirubin Dipstick Negative (Negative); Urine Clarity Sl. Cloudy (Clear); Urine Urobilinogen Normal (Normal)
[2017-12-10 11:57] LABS: Hyaline Cast 0-5 SEEN /lpf (0-5); Mucous, Urine 2+ /hpf (<or=2+); Squamous Epithelial Cells - UA 0-5 SEEN /hpf (0-5)
[2017-12-10 12:21] VITALS: BP 138/85; PULSE 78; RESP 16; O2SAT 98
[2017-12-10] MEDS: Lactated Ringers 1,000 ML 999 ML IV ×2 (12:31→14:18)
--- NOTE | 2017-12-10 14:27 | ED.DEP ---
ED Disposition - Plan for ED Patient: Disposition: Home or Assisted Living Chief Complaint: GI Bleed Instructions: ED Dehydration, ED Inflam Bowel Disease Crohn Referrals: Becca Le DO [Primary Care Provider] - 1 Day Additional Instructions: Keep your appointment with your primary care doctor tomorrow as scheduled. Please drink plenty of fluids as we discussed. You are at increased risk of dehydration because of your multiple bowel surgeries and your limited amount of intestines. Take all prescribed medications as you were instructed at discharge from [facility] yesterday. Follow-up with your doctors as the instructed. If you have any worsening of your condition or any new concerning symptoms, please return immediately to the emergency department for another evaluation.
[2017-12-10 15:29] VITALS: BP 139/74; PULSE 71; RESP 16; O2SAT 98
== END 2017-12-10 15:30 | disposition home or self-care (01) ==
PROVIDERS: Emergency Provider Emergency Medicine; Family Provider Family Medicine; PCP Family Medicine
DX: K50.90 Crohn's disease, unspecified, without complications (principal); E86.0 Dehydration; N18.9 Chronic kidney disease, unspecified; Z79.899 Other long term (current) drug therapy
CPT/HCPCS: 36591; 80053; 81001; 82274; 83605; 83690; 85025; 86850; 86900; 96361; 96365; 96366; 96374; 96375; 99282; J7120; A4216; J2405; J3490

== ENCOUNTER 2018-02-08 20:58 | Emergency (ER) | payer MEDICARE, MEDICAID, SELFPAY ==
[2018-02-08 20:58] VITALS: BP 149/75; PULSE 116; RESP 22; TEMP 37.3; O2SAT 99; BMI 24.4
[2018-02-08 21:42] VITALS: BP 131/88; PULSE 98; RESP 14; O2SAT 98
[2018-02-08 22:03] LABS: Absolute Lymphocyte Count 1.32 X10^3/ul (0.83-4.51); Absolute Neutrophil Count 5.2 X10^3/uL (2.0-7.7); Basophil# 0.04 X10^3/uL; Basophil% 0.5 % (0-1); Eosinophil# 0.19 X10^3/uL; Eosinophils% 2.4 % (0-5); Hematocrit 26.8 % (40-54); Hemoglobin 7.8 g/dl (13.0-16.5); Lymphocyte # 1.32 X10^3/ul (4.0); Lymphocyte % 16.4 % (19-41); Mean Corp Hgb Conc 29.1 g/gl (32-36); Mean Corpuscular Hgb 20.4 pg (27.0-32.0); Mean Corpuscular Volume 70.2 fL (80-94); Mean Platelet Vol. 8.5 fl (6.2-12.0); Monocyte# 1.24 X10^3/uL; Monocyte% 15.4 % (0-10); Neutrophil # 5.22 X10^3/uL (2.7-7.7); Neutrophil % 64.9 % (47-70); Platelet Count 350 K/mm3 (150-450); RBC Distribution Width CV 16.9 % (11.6-14.6); RBC Distribution Width SD 43.6 fl (35.1-43.9); Red Blood Count 3.82 M/mm3 (4.6-6.2)
[2018-02-08 22:05] LABS: Prothrombin Time (Protime)PT. 13.6 SECONDS (11.7-14.9)
[2018-02-08 22:18] LABS: Anion Gap 7 (5-15); BUN 26 mg/dL (7-18); BUN/Creat Ratio 15.9 RATIO (10-20); Calcium,Total 8.1 mg/dL (8.5-10.1); Chloride 106 mmol/L (98-107); Creatinine, Serum 1.64 mg/dL (0.70-1.30); EST Glomerular Filtration Rate 47 mL/min (>60); Est Glom Filt Rate - Afr Amer 57 mL/min (>60); Estimated Creatinine Clearance 58.49 ml/min; Glucose 116 mg/dL (74-106); Potassium 3.8 mmol/L (3.5-5.1); Sodium Level 139 mmol/L (136-145)
[2018-02-08 22:28] LABS: Differential Indicated SCAN CRITERIA MET; POSITIVE COUNT NO; POSITIVE DIFFERENTIAL NO; POSITIVE MORPHOLOGY YES
[2018-02-08 22:29] LABS: Anisocytosis RARE; Microcytosis 1+; Platelet Estimate ADEQUATE (ADEQ)
[2018-02-08] MEDS: HYDROmorphone 0.5 MG/0.5 ML SYRINGE IV (22:45)
[2018-02-08] MEDS: Ondansetron 4 MG/2 ML Vial IV (22:45)
[2018-02-08 23:30] VITALS: BP 108/63; PULSE 82; RESP 14; TEMP 36.6; O2SAT 97
[2018-02-08 23:45] VITALS: BP 129/78; PULSE 83; RESP 14; TEMP 36.6; O2SAT 96
[2018-02-09] VITALS (9 sets, daily range): BP systolic 106–141; BP diastolic 66–88; PULSE 69–90; RESP 13–18; TEMP 36.9–37; O2SAT 95–99
--- NOTE | 2018-02-09 00:36 | ED.VISSUMM ---
- ER Visit Summary Date of Service: 02/09/18 Chief Complaint: GI bleeding History of Present Illness: The patient is a 53 M with rectal bleed, this is been ongoing for 48 hours. It is intermittent. He has a history of Crohn's and he has a history of rectal bleeding from this. He has some intermittent abdominal pain with this it is mild this is chronic and recurrent he has had similar symptoms in the past he has been seen at [facility]. No fever or chills, he does feel weak. Physical Examination: Patient does appear pale Moist mucous membranes, no obvious facial deformity Pale conjunctiva No C-spine tenderness supple neck. Regular rate and rhythm without any obvious murmurs Clear lungs bilaterally speaking in full sentences without any obvious respiratory distress Abdomen soft with mild right-sided abdominal tenderness Moves all extremities without any difficulty or pain. Skin shows pallor without any rash Alert oriented ?3 with no gross focal deficit Emergency Department Course and Treatment: Patient continued to bleed in the emergency department, he had one episode of stool with bright red blood, his hemoglobin is slightly above 7 however I transfused him since he is continuing to bleed. I will call [facility] for transfer. Disposition: [Transfer in guarded condition] Impression: [Crohn's disease Lower GI bleed] Critical care time 35 minutes This note was generated with [employer] dictation software. It may contain incorrect words, spelling, and punctuation that were not noted in review of the chart prior to signing ED Disposition - Plan for ED Patient: Chief Complaint: GI Bleed Referrals: Becca Le DO [Primary Care Provider] -
--- NOTE | 2018-02-09 00:39 | ED.DCSUM_ITS ---
- ER Visit Summary Date of Service: 02/09/18 Chief Complaint: GI bleeding History of Present Illness: The patient is a 53 M with rectal bleed, this is been ongoing for 48 hours. It is intermittent. He has a history of Crohn's and he has a history of rectal bleeding from this. He has some intermittent abdominal pain with this it is mild this is chronic and recurrent he has had similar symptoms in the past he has been seen at [facility]. No fever or chills, he does feel weak. Physical Examination: Patient does appear pale Moist mucous membranes, no obvious facial deformity Pale conjunctiva No C-spine tenderness supple neck. Regular rate and rhythm without any obvious murmurs Clear lungs bilaterally speaking in full sentences without any obvious respiratory distress Abdomen soft with mild right-sided abdominal tenderness Moves all extremities without any difficulty or pain. Skin shows pallor without any rash Alert oriented ?3 with no gross focal deficit Emergency Department Course and Treatment: Patient continued to bleed in the emergency department, he had one episode of stool with bright red blood, his hemoglobin is slightly above 7 however I transfused him since he is continuing to bleed. I will call [facility] for transfer. Disposition: [Transfer in guarded condition] Impression: [Crohn's disease Lower GI bleed] Critical care time 35 minutes This note was generated with [employer] dictation software. It may contain incorrect words, spelling, and punctuation that were not noted in review of the chart prior to signing ED Disposition - Plan for ED Patient: Chief Complaint: GI Bleed Referrals: Becca Le DO [Primary Care Provider] -
[2018-02-09] MEDS: HYDROmorphone 1 MG/ML Syringe IV ×2 (02:47→05:02)
--- NOTE | 2018-02-09 04:12 | ED.RN ---
CALLED [facility] TO CHECK THE STATUS OF A ROOM ASSIGNMENT, PER GLORIA IN THE TRANSFER CENTER, NO BED AT THIS TIME. CALL TRANSFERRED TO [place] IN BED CONTROL, HE BELIEVES THERE SHOULD BE AN ASSIGNMENT IN THE NEXT HOUR OR TWO.
[2018-02-09 04:52] LABS: Hematocrit 28.6 % (40-54); Hemoglobin 8.8 g/dl (13.0-16.5)
[2018-02-09] MEDS: 0.9% Normal Saline 1,000 ML 100 ML IV (05:10)
[2018-02-09 05:34] LABS: Color, Urine Yellow (Yellow); Glucose, Dipstick Normal (Normal); Ketone-Dipstick Negative (Negative); Leukocyte Esterase-Dipstick Negative /ul (Negative); Nitrite-Dipstick Negative (Negative); Occult Blood-Urine Negative /ul (Negative); Protein-Dipstick Negative (Negative); Red Blood Cells-Urine 0 SEEN /hpf (0-5); Urine Bilirubin Dipstick Negative (Negative); Urine Clarity Clear (Clear); Urine Urobilinogen Normal (Normal)
[2018-02-09 05:43] LABS: Bacteria RARE /hpf (None Seen); Mucous, Urine RARE /hpf (<or=2+); Squamous Epithelial Cells - UA 0-5 SEEN /hpf (0-5); White Blood Cells 0-5 SEEN /hpf (0-5)
--- NOTE | 2018-02-09 07:34 | ED.RN ---
pt alert and responsive. aware of treatment plan waiting for transfer. skin warm/dry.
--- NOTE | 2018-02-09 07:41 | NURSING ---
CALLED [facility] TRANSFER LINE, TALKED TO ALFONSO. NO BED YET, CENSUS IS HIGH. WAITING ON DISCHARGES.
--- NOTE | 2018-02-09 09:49 | ED.RN ---
I WALKED BY PATIENT'S ROOM AND NOTICED THE PATIENT WAS NOT IN THE ROOM. THE GOWN WAS ON THE BED AND ALL OF THE MONITOR CORDS WERE LAYING ON THE BED. THE IV FLUIDS WERE ALSO HANGING WITH NO IV CATHETER ATTACHED. SECURITY WAS NOTIFIED THAT PATIENT LEFT WITH IV IN.
--- NOTE | 2018-02-09 10:03 | NURSING ---
CALLED [facility] AND CANCELLED THE BED FOR PATIENT.
--- NOTE | 2018-02-09 12:44 | ED.RN ---
No response from police about IV check on pt that eloped.
== END 2018-02-09 10:40 | disposition left against medical advice (07) ==
PROVIDERS: Emergency Medicine; Emergency Provider Emergency Medicine; Family Provider Family Medicine; PCP Family Medicine
DX: K50.90 Crohn's disease, unspecified, without complications (principal); K92.1 Melena; Z53.21 Procedure and treatment not carried out due to patient leaving prior to being seen by health care provider; G47.33 Obstructive sleep apnea (adult) (pediatric); N18.9 Chronic kidney disease, unspecified; Z79.899 Other long term (current) drug therapy
CPT/HCPCS: 36591; 80048; 81001; 85014; 85018; 85025; 85610; 86644; 86850; 86900; 86920; 96361; 96374; 96375; 96376; 99281; J7030; J7040; P9016; A4216; J2405

== ENCOUNTER 2019-06-08 20:54 | Emergency (ER) | payer MEDICARE, SELFPAY ==
[2019-06-08 20:55] VITALS: BP 179/106; PULSE 110; RESP 16; TEMP 36.3; O2SAT 96; BMI 29.2
[2019-06-08 21:02] VITALS: BP 167/103; PULSE 105; RESP 12; O2SAT 97
--- NOTE | 2019-06-08 21:39 | EKG12_ITS ---
Test Reason : ALT LOC Blood Pressure : / mmHG Vent. Rate : 091 BPM Atrial Rate : 091 BPM P-R Int : 134 ms QRS Dur : 082 ms QT Int : 344 ms P-R-T Axes : 056 -11 026 degrees QTc Int : 423 ms Normal sinus rhythm Normal ECG Confirmed by MARY ROONEY, CATARINO ([id number]), editor book JUAN C BERNSTEIN ([id number]) on 06/10/2019 9:57:07 AM Referred By: GREG Confirmed By:CATARINO HERNANDEZ MD
--- NOTE | 2019-06-08 21:39 | CT_ITS ---
HISTORY: ALTERED LOC, FOUND IN CAR BY POLICE. H/O SUBSTANCE ABUSE, STATES HAS ONLY TAKEN LYRICA AND PERCOCET. ADDITIONAL HISTORY: None provided. COMPARISON: 08/26/2014 TECHNIQUE: Axial, coronal and sagittal CT images were obtained of the brain without intravenous contrast. Number of images including paperwork: 244. A radiation dose optimization technique was used for this scan. FINDINGS: BRAIN: No acute hemorrhage or mass. No definite acute infarct; MRI more sensitive. VENTRICULAR SYSTEM: No hydrocephalus. PARANASAL SINUSES AND MASTOIDS: No air-fluid level in the imaged extent. Mild mucosal thickening in the left maxillary sinus partially visible. ORBITS: Unremarkable imaged extent. SKELETON AND SOFT TISSUES: Calvarium intact. ASPECTS score: Not applicable. CT/Brain/Head without Contrast IMPRESSION: No acute intracranial abnormality. Individualized dose optimization techniques were used for this CT. at 2243 Reported and signed by: Nupur Heart MD Electronically Signed: Nupur Heart MD at 22:43 EST Tel , Service support ,
[2019-06-08 22:23] LABS: Absolute Lymphocyte Count 0.59 X10^3/uL (0.83-4.51); Absolute Neutrophil Count 14.8 X10^3/uL (2.0-7.7); Basophil# 0.05 X10^3/uL; Basophil% 0.3 % (0-1); Eosinophil# 0.01 X10^3/uL; Eosinophils% 0.1 % (0-5); Hematocrit 45.4 % (40-54); Hemoglobin 14.3 g/dL (13.0-16.5); Lymphocyte # 0.59 X10^3/ul (4.0); Lymphocyte % 3.5 % (19-41); Mean Corp Hgb Conc 31.5 g/dL (32-36); Mean Corpuscular Hgb 26.1 pg (27.0-32.0); Mean Platelet Vol. 9.4 fl (6.2-12.0); Monocyte# 1.13 X10^3/uL; Monocyte% 6.8 % (0-10); NRBC Flagged by Analyzer 0 % (0-5); Neutrophil # 14.81 X10^3/uL (2.7-7.7); Neutrophil % 88.5 % (47-70); POSITIVE DIFFERENTIAL YES; Platelet Count 250 K/mm3 (150-450); RBC Distribution Width SD 45.2 fl (35.1-43.9); Red Blood Count 5.47 M/mm3 (4.6-6.2); White Blood Count 16.7 K/mm3 (4.4-11.0)
[2019-06-08 22:26] LABS: Differential Indicated SCAN CRITERIA MET
[2019-06-08 22:28] VITALS: PULSE 84; RESP 16; O2SAT 95
[2019-06-08] MEDS: Ondansetron 4 MG/2 ML Vial IV (22:29)
[2019-06-08] MEDS: 0.9% Normal Saline 1,000 ML 1000 ML IV (22:29)
[2019-06-08 22:34] LABS: BUN 12 mg/dL (7-18); Creatinine, Serum 1.84 mg/dL (0.70-1.30); Estimated Creatinine Clearance 50.02 ml/min; Glucose 86 mg/dL (74-106)
[2019-06-08 22:35] LABS: Anion Gap 5 (5-15); BUN/Creat Ratio 6.5 RATIO (10-20); Calcium,Total 9.1 mg/dL (8.5-10.1); Chloride 109 mmol/L (98-107); EST Glomerular Filtration Rate 41 mL/min (>60); Est Glom Filt Rate - Afr Amer 50 mL/min (>60); Potassium 4.3 mmol/L (3.5-5.1); Sodium Level 140 mmol/L (136-145)
[2019-06-08 22:42] LABS: Platelet Estimate ADEQUATE (ADEQ); Red Cell Morphology NORM C+C NORMAL (NORM C&C)
--- NOTE | 2019-06-08 23:01 | ED.VIS.GEN ---
History of Present Illness Chief Complaint: Alt LOC Informant: Patient, Field Marketing Coordinator Onset: Today Current Severity: Mild Maximum Severity: Moderate Narrative: Patient brought in by EMS and police after probable overdose. Patient states he members being at the gas station. He took his normal dose of Lyrica. An acquaintance there told him he had a tab of Percocet the patient could take as he had been complaining of some abdominal pain consistent with his Crohn's disease. Patient took this tab of reported Percocet. Patient states he remembers crawling in the backseat of his car and not feeling well. Per the EMS note police found the patient lying in the backseat of his car with the doors locked. They did break into the vehicle. Patient was initially agitated and combative. He was handcuffed and placed in the back of the squad. They reportedly gave 2 mg of Narcan intranasally and in route to the hospital patient started answering questions appropriately. Patient states he does not remember anything from the time that he was at the gas station until he woke up in the back of the squad. Patient complains of a mild headache currently. He feels nauseated. - Past Medical History (1) Anemia Status: Chronic (2) History of Crohn's disease Status: Chronic (3) History of depression Status: Chronic (4) History of gastroesophageal reflux (GERD) Status: Chronic (5) History of multiple sclerosis Status: Chronic Past Medical History - Allergies and Home Meds Allergies/Adverse Reactions: Allergies hydrochlorothiazide Allergy (Verified 06/08/19 21:02) Angioedema morphine Allergy (Verified 06/08/19 21:02) Itching Primary Care Physician: Becca Le DO [Primary Care Provider] - Prior records reviewed: Yes Surgical History: - - 2 hernia surgery, appendicectomy, four bowel surgeries, right knee surgery, Humira injection site surgery. Smoking Status: Current every day smoker - Family History Maternal Family History: Reports: - - Crohn's disease Paternal Family History: Reports: Heart Disease, - - Colon cancer Sibling Family History: Reports: - - Crohn's disease Review of Systems General: Denies: Chills, Fever Eyes: Denies: Visual changes - bilaterally Cardiovascular: Denies: Chest pain Respiratory: Denies: Dyspnea, Cough Gastrointestinal: Reports: Nausea. Denies: Abdominal pain, Vomiting Genitourinary: Denies: Dysuria Musculoskeletal: Denies: Extremity Pain Skin: Denies: Rash Neurological: Reports: Headache. Denies: Weakness, Parasthesia Psych: Denies: Depression Allergy: Denies: Uticaria Physical Exam Vital Signs/Narrative: Vital Signs Temp Pulse Resp BP Pulse Ox 06/08/19 22:28 84 16 95 06/08/19 21:02 105 H 12 167/103 H 97 06/08/19 20:55 97.4 F L 110 H 16 179/106 H 96 Inital Vital Signs reviewed: Yes General: Well nourished, Well developed Head: Normocephalic ENT: Moist mucous membranes Neck: Supple Cardiovascular: Regular rate, Regular rhythm Respiratory: No distress, CTA bilaterally Abdomen: Soft, Nontender, Normal bowel sounds Extremities: Nontender Skin: Normal color, No rash Neurological: Alert, Oriented x3 Psychological: Normal affect Diagnostic/Tx/Re-eval Impressions Brain CT 06/08/19 21:39 IMPRESSION: No acute intracranial abnormality. Individualized dose optimization techniques were used for this CT. at 2243 Reported and signed by: Nupur Heart MD Electronically Signed: Nupur Heart MD at 22:43 EST Tel , Service support , 06/08/19 21:39 Brain/Head without Contrast [CT] Stat Laboratory Results 06/08/19 06/08/19 22:05 22:05 WBC 16.7 H RBC 5.47 Hgb 14.3 Hct 45.4 MCV 83.0 MCH 26.1 L MCHC 31.5 L RDW Std Deviation 45.2 H RDW Coeff of Fortino 15.0 H Plt Count 250 MPV 9.4 Immature Gran % (Auto) 0.800 Neut % (Auto) 88.5 H Lymph % (Auto) 3.5 L [place] % (Auto) 6.8 Eos % (Auto) 0.1 Baso % (Auto) 0.3 Absolute Neuts (auto) 14.8 H Absolute Lymphs (auto) 0.59 L Nucleated RBC % 0 Differential Comment SEE COMMENT Platelet Estimate ADEQUATE RBC Morphology NORM C+C Sodium 140 Potassium 4.3 Chloride 109 H Carbon Dioxide 26.0 Anion Gap 5 BUN 12 Creatinine 1.84 H Estim Creat Clear Calc 50.02 Est GFR (MDRD) Af Amer 50 L Est GFR (MDRD) Non-Af 41 L BUN/Creatinine Ratio 6.5 L Glucose 86 Calcium 9.1 - EKG Initial EKG Interpretation: Sinus Rhythm - Sinus at 91 with no acute ischemia - Medical Decision Making Patient was given IV fluids and Zofran. On repeat evaluation he is resting comfortably. He has been observed here for 2 hours with no deterioration in his mental status. He is alert appropriate at this time. I did advise him that a believe he reacted to what ever this reported Percocet tab was but I am unable to tell him what exactly he took. ED Disposition - Plan for ED Patient: Disposition: Home or Assisted Living Diagnosis: Drug intoxication Instructions: Altered Loc Referrals: Becca Le DO [Primary Care Provider] -
[2019-06-08 23:10] VITALS: BP 127/98; PULSE 87; PULSE 93; RESP 11; RESP 15; O2SAT 96; O2SAT 97
== END 2019-06-09 00:01 | disposition home or self-care (01) ==
PROVIDERS: Emergency Provider Emergency Medicine; PCP Family Medicine
DX: R51 Headache (principal); R11.0 Nausea; T50.905A Adverse effect of unspecified drugs, medicaments and biological substances, initial encounter; Y92.9 Unspecified place or not applicable; K50.90 Crohn's disease, unspecified, without complications; F32.9 Major depressive disorder, single episode, unspecified; G35 Multiple sclerosis; D64.9 Anemia, unspecified; K21.9 Gastro-esophageal reflux disease without esophagitis; Z79.899 Other long term (current) drug therapy; F17.200 Nicotine dependence, unspecified, uncomplicated
CPT/HCPCS: 36591; 70450; 80048; 85025; 93005; 96361; 96374; 99285; J7030; A4216; J2405